=== PATIENT | female | born 1935 | race Caucasian/White ===

== ENCOUNTER 2021-05-01 11:26 | Observation (INO) | payer MEDICARE, SELFPAY ==
--- NOTE | ~2021-05-01 | XR_ITS ---
EXAMINATION: XR chest 1V portable DATE: 05/01/2021 12:03 INDICATION: Sudden weakness of left lower extremity. TECHNIQUE: A single frontal view of the chest was obtained. COMPARISON: None. FINDINGS: There is mild scarring at the lung apices. No pleural effusion or pneumothorax. The heart s ize is normal. There are changes of heart valve replacements. IMPRESSION: 1. Mild scarring at the lung apices. Reviewed, dictated and finalized at location A.
--- NOTE | ~2021-05-01 | US_ITS ---
EXAMINATION: US carotid duplex BI DATE: 05/02/2021 10:45 INDICATION: Transient ischemic episode with sudden onset lower limb weakness with left lower limb pre dominance. TECHNIQUE: Grayscale, color Doppler, and pulsed Doppler images of the cervical carotid arteries were obtained. The degree of vessel stenosis is placed in one of the following categories: normal, <50%, 5 0-69%, >=70% but less than near-occlusion, near-occlusion, or total occlusion. Note that percent sten osis relative to normal distal artery lumen diameter is indirectly measured from velocity measurement s as described by Jimmy, et al. Radiology 2003; 229:340-346. COMPARISON: None. FINDINGS: RIGHT: The right common carotid artery (CCA) peak systolic velocity (PSV) is 79 cm/s. The right internal car otid artery (ICA) PSV is 81 cm/s. The right ICA end-diastolic velocity (EDV) is 16 cm/s. The right IC A/CCA PSV ratio is 1.0. Grayscale and color Doppler images yield an estimate of <50% diameter reducti on from plaque in the ICA. The external carotid artery (ECA) PSV is 103 cm/s. There is antegrade flow in the right vertebral artery. LEFT: The left CCA PSV is 89 cm/s. The left ICA PSV is 98 cm/s. The left ICA EDV is 12 cm/s. The left ICA/C CA PSV ratio is 1.1. Grayscale and color Doppler images yield an estimate of <50% diameter reduction from plaque in the ICA. The ECA PSV is 119 cm/s. There is antegrade flow in the left vertebral artery . IMPRESSION: 1. <50% stenosis in the right internal carotid artery. 2. <50% stenosis in the left internal carotid artery. 3. Cardiac arrhythmia is present. Correlate with EKG. Reviewed, dictated and finalized at location A.
--- NOTE | ~2021-05-01 | MR_ITS ---
EXAMINATION: MR brain/brain stem wo/w con DATE: 05/02/2021 11:13 INDICATION: Transient ischemic attack. Left hemiparesis. TECHNIQUE: Magnetic resonance imaging (MRI) of the brain and brainstem was performed without and with 12 mL MultiHance intravenous contrast. Sequences included sagittal and axial T1-weighted FSE, axial diffusion-weighted FS EPI, axial T2*-weighted GRE, axial T2-weighted FLAIR Propeller, and axial T2-we ighted Propeller. Postcontrast sequences included axial, sagittal, and coronal T1-weighted FSE. Appar ent diffusion coefficient (ADC) maps were created. COMPARISON: Head CT 05/01/2021 FINDINGS: There are scattered areas of nonspecific increased T2-weighted signal intensity in the cere bral white matter. 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 There is no intracran ial hemorrhage, acute infarction, or abnormal intracranial mass lesion. The ventricles are normal in size. There are likely changes of ocular lens replacement surgeries. There is mild mucosal thickening in the ethmoid sinuses. The mastoid air cells are normal. IMPRESSION: 1. Moderate nonspecific cerebral white matter disease, which likely represents chronic small vessel i schemic disease. Reviewed, dictated and finalized at location A. IMPRESSION: 1. Moderate nonspecific cerebral white matter disease, which likely represents chronic small vessel ischemic disease.
--- NOTE | ~2021-05-01 | CT_ITS ---
EXAMINATION: CT brain wo con DATE: 05/01/2021 12:06 INDICATION: Sudden weakness of left lower extremity. TECHNIQUE: Computed tomography (CT) of the head was performed without intravenous contrast. The mA wa s adjusted according to patient size. Iterative reconstruction technique was employed. The dose-lengt h product was 605.33 mGy-cm. COMPARISON: None FINDINGS: There are scattered areas of low attenuation in the cerebral white matter. There is no intr acranial hemorrhage, acute infarction, or abnormal intracranial mass lesion. The ventricles are hernan l in size. There is mild mucosal thickening in the paranasal sinuses. There are likely changes of ocu lar lens replacement surgeries. The mastoid air cells are normal. IMPRESSION: 1. Moderate nonspecific cerebral white matter disease, which likely represents chronic small vessel i schemic disease. Reviewed, dictated and finalized at location A. IMPRESSION: 1. Moderate nonspecific cerebral white matter disease, which likely represents chronic small vessel ischemic disease.
[2021-05-01 11:33] VITALS: BP 135/75; PULSE 89; RESP 14; TEMP 36.6; O2SAT 99
--- NOTE | 2021-05-01 11:51 | ECG_ITS ---
Measurements Intervals [place] Rate: 82 P: MD: 0 QRS: 48 QRSD: 83 T: 18 QT: 367 QTc: 430 Interpretive Statements ATRIAL FIBRILLATION BORDERLINE T WAVE ABNORMALITY- ANT/INF LEADS BASELINE ARTIFACT- I, II, III, AVR, AVL, AVF ABNORMAL ECG Electronically Signed On 05-01-2021 13:00:25 CDT by Naren Bui D.O.
--- NOTE | 2021-05-01 12:17 | ED.GENADULT ---
HPI - General Adult General Chief complaint: Extremity Problem,Nontraumatic Stated complaint: left leg weakness onset 0930 Time Seen by Provider: 05/01/21 11:45 Source: patient, family, EMS and RN notes reviewed Mode of arrival: EMS Limitations: no limitations History of Present Illness HPI narrative: Patient is 85 years old white female brought to the emergency room by ambulance from home complaining of sudden onset of weakness of the left lower extremity. Patient was not able to move it. Patient denies any weakness anywhere else. Also denies any tingling numbness fever chills chest pain or shortness of breath or headache or recent trauma. Patient is fully vaccinated for COVID-19. Related Data Allergies Allergy/AdvReac Type Severity Reaction Status Date / Time No Known Allergies Allergy Verified 05/01/21 12:35 Review of Systems Review of Systems: CONSTITUTIONAL: Denies fever, chills, or sweats. EYES: Denies visual changes, redness, or discharge. ENT: Denies rhinorrhea, congestion, sore throat, or otalgia. CARDIOVASCULAR: Denies chest pain, palpitations, or edema. RESPIRATORY: Denies cough or dyspnea. GASTROINTESTINAL: Denies abdominal pain, nausea, vomiting, or diarrhea. GENITOURINARY: Denies dysuria or hematuria. SKIN: Denies rash or itching. MUSCULOSKELETAL: Denies back pain, joint pain, or myalgia. NEUROLOGIC: Denies headache, numbness, or weakness. PSYCHIATRIC: Denies anxiety or depression. Exam Narrative: General appearance: Well-developed, well-nourished, generally weak Skin: Normal color Head: Normocephalic, nontraumatic Eyes: Clear conjunctiva ENT: Oropharynx normal, ears normal, nose normal Neck: Supple, nontender Chest and respiratory: Airway patent, no respiratory distress, no accessory muscle use Heart: Regular rate/rhythm Abdomen: Soft, nontender, no organomegaly, quiet bowel sounds Vascular: Normal peripheral pulses, normal capillary refill. Musculoskeletal: Normal range of motion, nontender back Neurologic: Alert and oriented ?3, [employer] WORK[employer] is normal as tested, no gross motor deficit Course Course Emergency Course: Stable, resolved Vital Signs Vital signs: Vital Signs Temperature 36.6 C 05/01/21 11:33 Pulse Rate 89 05/01/21 11:33 Respiratory Rate 14 05/01/21 11:33 Blood Pressure 135/75 05/01/21 11:33 Pulse Oximetry 99 05/01/21 11:33 Temperature 36.6 C 05/01/21 11:33 Pulse Rate 89 05/01/21 11:33 Respiratory Rate 14 05/01/21 11:33 Blood Pressure 135/75 05/01/21 11:33 Pulse Oximetry 99 05/01/21 11:33 Medical Decision Making MDM Narrative Medical decision making narrative: Sudden onset of weakness of the left lower extremity. CT head, labs, chest x-ray ordered. Differential diagnosis as below. Differential Diagnosis Differential Diagnosis: Ischemic limb, CVA, electrolyte imbalance. Vital Signs Vital Signs: Vital Signs Temperature 36.6 C 05/01/21 11:33 Pulse Rate 89 05/01/21 11:33 Respiratory Rate 14 05/01/21 11:33 Blood Pressure 135/75 05/01/21 11:33 Pulse Oximetry 99 05/01/21 11:33 Temperature 36.6 C 05/01/21 11:33 Pulse Rate 89 05/01/21 11:33 Respiratory Rate 14 05/01/21 11:33 Blood Pressure 135/75 05/01/21 11:33 Pulse Oximetry 99 05/01/21 11:33 Imaging Data Radiologist's impression: Impressions Chest X-Ray 05/01/21 12:03 IMPRESSION: 1. Mild scarring at the lung apices. Head CT 05/01/21 12:07 IMPRESSION: 1. Moderate nonspecific cerebral white matter disease, which likely represents chronic small vessel ischemic disease. ECG Data EKG #1: Attestation: I personally reviewed and interpreted this ECG as follow
[2021-05-01 12:18] LABS: Glucose Point of Care 102 mg/dl (65-105)
[2021-05-01] MEDS: ASPIRIN 325 MG TABLET PO (12:35)
[2021-05-01 13:27] VITALS: BP 116/55; PULSE 83; RESP 19; O2SAT 96
[2021-05-01 13:29] LABS: Basophils Absolute Auto 0.1 K/mm3 (0.0-0.1); Basophils Percent Auto 0.4 % (0.2-1.2); Eosinophils Absolute Auto 0.2 K/mm3 (0-0.3); Eosinophils Percent Auto 1.2 % (0-4.4); Hematocrit 33.7 % (37.0-47.0); Hemoglobin 11.5 g/dL (12.0-15.0); Immature Granulocyte Absolute 0.09 K/mm3 (0.00-0.031); Immature Granulocyte Percent A 0.6 % (0-0.5); Lymphocytes Percent Auto 9.6 % (18.3-44.2); Mean Corpuscular HGB Conc 34.1 g/dl (32-36); Mean Corpuscular Hemoglobin 35.3 pg (26-34); Mean Corpuscular Volume 103.4 fl (80-100); Mean Platelet Volume 9.7 fl (7.4-10.4); Monocytes Absolute Auto 0.7 K/mm3 (0.1-0.6); Monocytes Percent Auto 4.2 % (2.6-8.5); Neutrophils Absolute Auto 13.1 K/mm3 (1.3-6.7); Platelet Count Result 379 k/mm3 (150-375); Red Blood Count 3.26 M/mm3 (4.2-5.4); Red Cell Distribution Width 15.5 % (11.5-14.5); White Blood Count 15.6 K/mm3 (4.5-10.0)
[2021-05-01 13:42] LABS: Partial Thromboplastin Time 27.5 SECONDS (22.3-36.8); Prothrombin Time 13.1 Seconds (11.1-14.7)
[2021-05-01 13:43] LABS: Alanine Aminotransferase 13 U/L (4-35); Albumin Level 4.6 g/dL (3.5-5.1); Alkaline Phosphatase 157 U/L (38-126); Anion Gap 8 mmol/L (8-16); Aspartate Amino Transferase 30 U/L (14-36); Bilirubin,Total 0.5 mg/dL (0.2-1.3); Blood Urea Nitrogen 20 mg/dL (7-17); CRP 1.6 mg/dL (<1.0); Calcium 9.9 mg/dL (8.4-10.2); Carbon Dioxide 26 mmol/L (22-30); Chloride 105 mmol/L (98-107); Estimated CRCL calculation 37 ml/min; Estimated Glomerular Filt Rate 59; Glucose 91 mg/dL (65-110); Potassium 4.2 mmol/L (3.4-5.0); Sodium 139 mmol/L (137-145)
[2021-05-01 13:51] LABS: Troponin I < 0.012 ng/mL (0.000-0.034)
[2021-05-01 14:04] LABS: Erythrocyte Sedimentation Rate 122 mm/hr (0-20)
[2021-05-01 14:59] LABS: Add Urine Microscopic? YES; Appearance Urine Cloudy (Clear); Bilirubin Urine Negative (Negative); Blood Urine Negative (Negative); Color Urine Yellow (Yellow); Glucose Urine UA Negative (Negative); Ketones Urine Negative (Negative); Leukocyte Esterase Ur 1+ LEU/UL (Negative); Mucus Urine Rare /lpf; Nitrate Urine Negative (Negative); Protein Urine Negative (Negative); RBC Urine 0-2 /hpf (0-2); Specific Grav Ur 1.009 (1.001-1.035); Squamous Epithelial Cell Urine Few /hpf (Few); Urobilinogen Urine Negative mg/dL (<2.0)
--- NOTE | 2021-05-01 16:00 | PM.IMHP ---
H&P: HPI History of Present Illness Date/Time: 05/01/21 16:00 Chief Complaint: Left leg weakness. Narrative: This is an 85-year-old female with dementia, hypertension, hypothyroidism, GERD, and rheumatoid arthritis who presented to the emergency department earlier today from home for evaluation of left leg weakness. Due to the patient's dementia she is not the best historian and thus some of the following is obtained via review of her electronic medical records as well as discussions with her son John at bedside, with the patient's permission. This morning the patient ambulated to the dining room for breakfast and when she went to stand up to fetch more coffee her leg just stopped working. Staff at her senior care facility then called her son who came to check up on her and he reports that it took 3 people to get her into a wheelchair as she was unable to move her left leg. Son also reports that her right leg seemed a bit weak for a period of time as well. She has no deficits at the time of my evaluation and her symptoms resolved within a few hours. He does not recall if she is ever had similar symptoms in the past. It should be noted that the patient recently fractured a bone in her left foot which apparently did not heal well and her son is wondering if perhaps there may be some relation. The patient herself denies pain in the foot and leg. She also denies current focal weakness and paresthesias. Review of Systems Review of Systems: 12 systems were reviewed. Somewhat limited given her dementia. No mention of fever, chills, or sweats. No recent illness. The patient denies chest pain shortness of breath. No nausea, vomiting, diarrhea, or dysuria. No vertigo or diplopia. No dysphagia or dysarthria. Except as documented, all other systems were reviewed and are negative. [facility] Past Medical History Medical History (Updated 05/01/21 @ 20:51 by Patience Montenegro PA-C) Chronic anemia Patient on iron supplementation. She also receives Epogen injection per her primary care provider. Dementia Gastroesophageal reflux disease Hyperlipidemia Hypertension Hypothyroidism Rheumatoid arthritis Surgical History Surgical History (Updated 05/01/21 @ 20:40 by Patience Montenegro PA-C) History of section History of cholecystectomy History of mitral valve replacement Family History Family History (Updated 05/01/21 @ 20:40 by Patience Montenegro PA-C) Other Dementia Diabetes mellitus Social History Social History (Updated 05/01/21 @ 20:42 by Patience Montenegro PA-C) Social History: Surrogate decision-maker: John Cabello, son. CODE STATUS: Full code. Smoking status: Never smoker Alcohol intake: never Substance use: never Additional living arrangements comments: The patient lives in a senior care community in [place]. Additional occupation/education comments: Retired from working in a [employer] yard. Meds Home Medications and Allergies Home Medications Medication Instructions Recorded Confirmed Type aspirin [Aspirin Low Dose] 81 mg PO DAILY 05/01/21 05/01/21 History carvedilol 3.125 mg PO BID 05/01/21 05/01/21 History cyanocobalamin (vitamin B-12) 250 mcg PO DAILY 05/01/21 05/01/21 History ferrous sulfate 325 mg PO DAILY 05/01/21 05/01/21 History gemfibrozil 600 mg PO BID 05/01/21 05/01/21 History levothyroxine 50 mcg PO DAILY 05/01/21 05/01/21 History methotrexate sodium 5 mg PO WEEKLY 05/01/21 05/01/21 History mirtazapine 30 mg PO DAILY 05/01/21 05/01/21 History mv, min #36-iron,carbonyl-FA 1 tablet PO DAILY 05/01/21 05/01/21 History [Geritol Complete] omeprazole 20 mg PO DAILY 05/01/21 05/01/21 History spironolactone 12.5 mg PO DAILY 05/01/21 05/01/21 History Allergies Allergy/AdvReac Type Severity Reaction Status Date / Time No Known Allergies Allergy Verified 05/01/21 12:35 Vital Signs Vital Signs - 24 hr 05/01/21 11:33 05/01/21 13:27 Temperature 97.8 F Pulse
[2021-05-01 17:56] VITALS: BP 141/82; PULSE 77; RESP 16; TEMP 36.6; O2SAT 98
[2021-05-01 20:00] VITALS: PULSE 90; PULSE 92; RESP 16; O2SAT 97
[2021-05-01 20:44] VITALS: PULSE 77; RESP 18; O2SAT 98
[2021-05-01 21:37] LABS: Glucose Point of Care 188 mg/dl (65-105)
[2021-05-01 22:00] VITALS: BP 121/57; PULSE 92; RESP 16; TEMP 36.3; O2SAT 97
[2021-05-01 22:00] LABS: Immature Reticulocyte Fraction 17.2 % (3.0-15.9); Reticulocyte Percent 1.23 % (0.7-4.3); Reticulocytes Absolute 0.04 B/L (32.2-175.7)
[2021-05-01 22:22] LABS: Transferrin 185 mg/dL (206-381)
[2021-05-01 22:32] LABS: Iron 33 ug/dL (37-170)
[2021-05-01 23:04] LABS: Percent Iron Saturation 12 % (20-50)
[2021-05-01 23:22] LABS: Folic Acid 11.6 ng/mL (2.76->20)
[2021-05-02] VITALS (8 sets, daily range): BP systolic 112–129; BP diastolic 57–64; PULSE 85–110; RESP 16–18; TEMP 36.4–36.6; O2SAT 90–96
[2021-05-02] MEDS: LEVOTHYROXINE SODIUM 50 MCG TABLET PO (05:35)
[2021-05-02 06:57] LABS: Hematocrit 31.3 % (37.0-47.0); Hemoglobin 10.3 g/dL (12.0-15.0); Mean Corpuscular HGB Conc 32.9 g/dl (32-36); Mean Corpuscular Hemoglobin 33.3 pg (26-34); Mean Corpuscular Volume 101.3 fl (80-100); Mean Platelet Volume 9.6 fl (7.4-10.4); Platelet Count Result 351 k/mm3 (150-375); Red Blood Count 3.09 M/mm3 (4.2-5.4); Red Cell Distribution Width 15.4 % (11.5-14.5)
[2021-05-02 07:02] LABS: Alanine Aminotransferase 12 U/L (4-35); Albumin Level 4.3 g/dL (3.5-5.1); Alkaline Phosphatase 138 U/L (38-126); Anion Gap 7 mmol/L (8-16); Aspartate Amino Transferase 28 U/L (14-36); Bilirubin,Total 0.5 mg/dL (0.2-1.3); Blood Urea Nitrogen 19 mg/dL (7-17); Calcium 9.5 mg/dL (8.4-10.2); Carbon Dioxide 28 mmol/L (22-30); Chloride 105 mmol/L (98-107); Estimated CRCL calculation 41 ml/min; Estimated Glomerular Filt Rate > 60; Glucose 115 mg/dL (65-110); Magnesium 1.8 mg/dL (1.6-2.3); Potassium 3.9 mmol/L (3.4-5.0); Sodium 140 mmol/L (137-145)
[2021-05-02] MEDS: MULTIVITAMINS /C LUTEIN (CENTRUM SILVER) TABLET *BKC 1 TAB PO (09:13)
[2021-05-02] MEDS: SPIRONOLACTONE 12.5 MG TABLET PO (09:13)
[2021-05-02] MEDS: carvediloL 3.125 MG TABLET PO ×2 (09:13→17:13)
[2021-05-02] MEDS: gemfibroziL 600 MG TABLET PO ×2 (09:13→17:13)
[2021-05-02] MEDS: ASPIRIN 81 MG ENTERIC TABLET PO (09:13)
[2021-05-02] MEDS: FERROUS SULFATE 324 MG TABLET PO (09:14)
[2021-05-02] MEDS: CYANOCOBALAMIN 250 MCG TABLET PO (09:14)
[2021-05-02] MEDS: PANTOPRAZOLE 40 MG TABLET PO (09:14)
--- NOTE | 2021-05-02 10:20 | PC.NURSE ---
to MRI at 1020
--- NOTE | 2021-05-02 11:24 | PC.NURSE ---
patient returned to room from MRI
--- NOTE | 2021-05-02 11:52 | WPDNEURCNPN ---
Assessment and Plan Additional Plan considering the presentation she will be thoroughly evaluated rule out the possibility of the his stroke she will have an MRI of the brain in addition to routine blood studies because of ongoing dementia and also evaluation by the physical therapy further adjustment will be made accordingly Consult date: 05/02/21 Time Seen: 10:30 HPI: Yoselyn Cabello is a 85 year old female admitted to the hospital through the emergency room where she was brought by the ambulance from home complaining of sudden onset of weakness of the left lower extremity to the point that she was unable to move 8 with no history of any sensory symptomatology or any generalized symptomatology in addition to no history of trauma initial evaluation in the emergency room revealed her to have no focal neurological deficit with stable vital signs and routine lab studies documented leukocytosis with hemoglobin 10.3 platelet count of 351 INR of 1.0 and BMP normal with blood sugar 115, UA with 10 to 15 WBCs, x-ray chest with mild scarring CT head with nonspecific white matter disease, and MRI of the brain confirming the same nonspecific white matter disease carotid study with less than 50% stenosis but the observation of cardiac arrhythmia. Patient does have ongoing history of 1. Dementia 2. Hypertension 3. Hypothyroidism 4. GERD 5. Rheumatoid arthritis Review of Systems Review of Systems: All systems reviewed & are unremarkable except as noted in HPI and below PMFSH Past Medical History Medical History Chronic anemia Patient on iron supplementation. She also receives Epogen injection per her primary care provider. Dementia Gastroesophageal reflux disease Hyperlipidemia Hypertension Hypothyroidism Rheumatoid arthritis Surgical History Surgical History History of section History of cholecystectomy History of mitral valve replacement Family History Family History Other Dementia Diabetes mellitus Social History Social History Social History: Surrogate decision-maker: John Cabello, son. CODE STATUS: Full code. Smoking status: Never smoker Alcohol intake: never Substance use: never Additional living arrangements comments: The patient lives in a nursing home community in [place]. Additional occupation/education comments: Retired from working in a lumber yard. Meds Home Medications and Allergies Home Medications Medication Instructions Recorded Confirmed Type aspirin [Aspirin Low Dose] 81 mg PO DAILY 05/01/21 05/01/21 History carvedilol 3.125 mg PO BID 05/01/21 05/01/21 History cyanocobalamin (vitamin B-12) 250 mcg PO DAILY 05/01/21 05/01/21 History ferrous sulfate 325 mg PO DAILY 05/01/21 05/01/21 History gemfibrozil 600 mg PO BID 05/01/21 05/01/21 History levothyroxine 50 mcg PO DAILY 05/01/21 05/01/21 History methotrexate sodium 5 mg PO WEEKLY 05/01/21 05/01/21 History mirtazapine 30 mg PO DAILY 05/01/21 05/01/21 History mv, min #36-iron,carbonyl-FA 1 tablet PO DAILY 05/01/21 05/01/21 History [Geritol Complete] omeprazole 20 mg PO DAILY 05/01/21 05/01/21 History spironolactone 12.5 mg PO DAILY 05/01/21 05/01/21 History Allergies Allergy/AdvReac Type Severity Reaction Status Date / Time No Known Allergies Allergy Verified 05/01/21 12:35 Vital Signs Vital Signs - 24 hr 05/01/21 13:27 05/01/21 17:56 05/01/21 20:00 Temperature 36.6 C Pulse Rate 83 77 92 Respiratory Rate 19 16 16 Blood Pressure 116/55 L 141/82 H Pulse Oximetry 96 98 97 05/01/21 20:44 05/01/21 22:00 05/02/21 00:00 Temperature 36.3 C L Pulse Rate 77 92 85 Respiratory Rate 18 16 Blood Pressure 121/57 L Pulse Oximetry 98 97 05/02/21 04:00 05/02/21 06:00 05/02/21 08:00 Temperature 36.4 C L
--- NOTE | 2021-05-02 15:12 | PM.IMPN ---
Progress Note: A&P Assessment and Plan (1) Transient left leg weakness: Code(s): R29.898 - Other symptoms and signs involving the musculoskeletal system Status: Acute (2) Macrocytic anemia: Code(s): D53.9 - Nutritional anemia, unspecified Status: Acute (3) Dementia: Code(s): F03.90 - Unspecified dementia without behavioral disturbance Status: Acute (4) Rheumatoid arthritis: Code(s): M06.9 - Rheumatoid arthritis, unspecified Status: Acute (5) Elevated erythrocyte sedimentation rate: Code(s): R70.0 - Elevated erythrocyte sedimentation rate Status: Acute (6) Hypothyroidism: Code(s): E03.9 - Hypothyroidism, unspecified Status: Acute (7) Hypertension: Code(s): I10 - Essential (primary) hypertension Status: Acute (8) Hyperlipidemia: Code(s): E78.5 - Hyperlipidemia, unspecified Status: Acute Additional Plan The patient was brought to the hospital today for evaluation of left leg weakness however her son reports that her right leg also seemed weak. Pt is here for stroke work up, pt can have pT / OT. MRI CT and carotids scans reviewed, [facility] dc tyrone Subjective Date/time seen: 05/02/21 15:12 Interval history: 85-year-old female with dementia, hypertension, hypothyroidism, GERD, and rheumatoid arthritis who presented to the emergency department earlier today from home for evaluation of left leg weakness. Pt is having stroke work up for possible TIA/ STroke, seen by neurology. Review of Systems Review of Systems: All systems reviewed & are unremarkable except as noted in HPI and below Exam Narrative: General: Frail elderly female. Respiratory: Lungs are clear to auscultation bilaterally. Cardiovascular: Regular rate and rhythm with S1-S2. Soft murmur at the apex Gastrointestinal: Abdomen is soft, nontender, and nondistended with positive bowel sounds. Skin: Warm and dry. Generalized pallor. Extremities: No cyanosis, clubbing, or edema. Radial and pedal pulses intact. Neurological: Alert and oriented to name, age, and date of . Feels heaviness in her left leg Psychiatric: Pleasantly confused. Objective Data Vital Signs Vital Signs: Vital Signs - 24 hr 05/01/21 17:56 05/01/21 20:00 05/01/21 20:44 Temperature 36.6 C Pulse Rate 77 92 77 Respiratory Rate 16 16 18 Blood Pressure 141/82 H Pulse Oximetry 98 97 98 05/01/21 22:00 05/02/21 00:00 05/02/21 04:00 Temperature 36.3 C L Pulse Rate 92 85 96 Respiratory Rate 16 Blood Pressure 121/57 L Pulse Oximetry 97 05/02/21 06:00 05/02/21 08:00 05/02/21 09:13 Temperature 36.4 C L Pulse Rate 104 H 110 H 110 H Respiratory Rate 16 Blood Pressure 129/64 Pulse Oximetry 90 05/02/21 14:00 Temperature 36.6 C Pulse Rate 86 Respiratory Rate 18 Blood Pressure 112/57 L Pulse Oximetry 96 Intake/Output Intake/Output: Intake & Output 04/29/21 04/30/21 05/01/21 05/02/21 23:59 23:59 23:59 23:59 Intake Total 580 Output Total 325 Balance 255 Meds/Results Medications: Active Medications Generic Name Dose Route Start Last Admin Trade Name Freq PRN Reason Stop Dose Admin Aspirin 81 mg 05/02/21 09:00 05/02/21 09:13 Aspirin 81 Mg Enteric Tablet PO 81 mg DAILY [facility] Administration Carvedilol 3.125 mg 05/02/21 09:00 05/02/21 09:13 Carvedilol 3.125 Mg Tablet PO 3.125 mg BID [facility] Administration Cyanocobalamin 250 mcg 05/02/21 09:00 05/02/21 09:14 Cyanocobalamin 250 Mcg Tablet PO 250 mcg DAILY JOSE E Administration Ferrous Sulfate 324 mg 05/02/21 09:00 05/02/21 09:14 Ferrous Sulfate 324 Mg Tablet PO 324 mg DAILY JOSE E Administration Gemfibrozil 600 mg 05/02/21 09:00 05/02/21 09:13 Gemfibrozil 600 Mg Tablet PO 600 mg BID [facility] Administration Levothyroxine Sodium 50 mcg 05/02/21 06:30 05/02/21 05:35 Levothyroxine Sodium 50 Mcg Tablet PO 50 mcg DAILY@0630 [facility] Ad
[2021-05-02] MEDS: MIRTAZAPINE 30 MG TABLET PO (17:13)
--- NOTE | 2021-05-02 18:34 | PM.DS ---
DS: Admitting Diagnosis Discharge Date 05/02/2021 Admitting Diagnosis Left leg weakness DS: Discharge Diagnosis Discharge Diagnosis (1) Transient left leg weakness: Code(s): R29.898 - Other symptoms and signs involving the musculoskeletal system Status: Acute Assessment and Plan: The patient was brought to the hospital today for evaluation of left leg weakness however her son reports that her right leg also seemed weak. Pt is here for stroke work up, pt can have pT / OT. MRI CT and carotids scans reviewed nil acute. (2) Macrocytic anemia: Code(s): D53.9 - Nutritional anemia, unspecified Status: Acute Assessment and Plan: PCP To FOLLOW (3) Dementia: Code(s): F03.90 - Unspecified dementia without behavioral disturbance Status: Acute Assessment and Plan: PCP To FOLLOW (4) Rheumatoid arthritis: Code(s): M06.9 - Rheumatoid arthritis, unspecified Status: Acute Assessment and Plan: PCP To FOLLOW (5) Elevated erythrocyte sedimentation rate: Code(s): R70.0 - Elevated erythrocyte sedimentation rate Status: Acute Assessment and Plan: ESR high ? PMR pt has history of RA i [place] dc with oral course of steroids. (6) Hypothyroidism: Code(s): E03.9 - Hypothyroidism, unspecified Status: Acute Assessment and Plan: PCP To FOLLOW , tsh is NL here (7) Hypertension: Code(s): I10 - Essential (primary) hypertension Status: Acute Assessment and Plan: PCP To FOLLOW (8) Hyperlipidemia: Code(s): E78.5 - Hyperlipidemia, unspecified Status: Acute Assessment and Plan: PCP To FOLLOW DS: Summary Hospital Course Hospital Course: 85-year-old female with dementia, hypertension, hypothyroidism, GERD, and rheumatoid arthritis who presented to the emergency department earlier today from home for evaluation of left leg weakness. Pt is having stroke work up for possible TIA/ STroke, seen by neurology.Work up was negative. Pt dc with short course of oral steroids. Time Spent with Patient Time attestation: Total time spent providing and/or coordinating discharge services:33 minutes on day of discharge. Exam Narrative: General: Frail elderly female. Respiratory: Lungs are clear to auscultation bilaterally. Cardiovascular: Regular rate and rhythm with S1-S2. Soft murmur at the apex Gastrointestinal: Abdomen is soft, nontender, and nondistended with positive bowel sounds. Skin: Warm and dry. Generalized pallor. Extremities: No cyanosis, clubbing, or edema. Radial and pedal pulses intact. Neurological: Alert and oriented to name, age, and date of . Feels heaviness in her left leg Psychiatric: Pleasantly confused. DS: Data Data Completed and Pending Labs on day of discharge: Labs from last 24 hours 05/02/21 05/02/21 05/02/21 06:01 06:01 06:00 WBC 14.0 H RBC 3.09 L Hgb 10.3 L Hct 31.3 L MCV 101.3 H MCH 33.3 D MCHC 32.9 RDW 15.4 H Plt Count 351 MPV 9.6 Absolute Retic Percent Retic Immature Retic Fraction Retic Hgb Content Sodium 140 Potassium 3.9 Chloride 105 Carbon Dioxide 28 Anion Gap 7 L BUN 19 H Creatinine 0.80 Estim Creat Clear Calc 41 Estimated GFR > 60 Glucose 115 H POC Capillary Glucose Calcium 9.5 Magnesium 1.8 Iron TIBC % Saturation Transferrin Ferritin Total Bilirubin 0.5 AST 28 ALT 12 Alkaline Phosphatase 138 H Total Protein 8.0 Albumin 4.3 Vitamin B12 Folate TSH (Reflex) 1.310 05/01/21 05/01/21 05/01/21 21:39 21:39 21:39 WBC RBC Hgb Hct MCV MCH MCHC RDW Plt Count MPV Absolute Retic 0.04 L Percent Retic 1.23 Immature Retic Fraction 17.2 H Retic Hgb Content 40.0 H Sodium Potassium Chloride Carbon Dioxide Anion Gap BUN Creatinine Estim C
--- NOTE | 2021-05-02 20:58 | ECHO_ITS ---
Patient Info Name: Yoselyn Cabello Age: 85 years : 1935 Gender: Female Ht: 66 in Wt: 136 lbs BSA: 1.70 m2 HR: 82 bpm BP: 129 / 64 mmHg Heart Rhythm: Atrial Fibrillation Exam Date: 05/02/2021 1:22 PM Exam Location: [facility] Pulmonary Patient Status: Outpatient Admit Date: 05/01/2021 Staff Ordering Physician: Patience Montenegro PA-C Tooling Supervisor: Nimesh Browne RDCS, RT Attending Provider: Fox Apple MD Referring Physician: Moni FREITAS; Exam Type: CA echo doppler color flow Study Info Indications I10 - Essential (primary) hypertension Complete two-dimensional, color flow and Doppler transthoracic echocardiogram is performed. Strain analysis performed. Summary 1. Complete two-dimensional, color flow and Doppler transthoracic echocardiogram is performed. 2. Normal left ventricular size with mild concentric hypertrophy. Left ventricular function is mildly diminished, calculated EF 49%, visually 50%, with no segmental wall motion abnormalities. Average global longitudinal strain is moderately decreased at -11%. This is consistent with systolic dysfunction as well. Grade 2 diastolic dysfunction is present. 3. Probable right ventricular dysfunction. 4. Left atrial chamber dimension is mildly enlarged. 5. No pulmonary hypertension, estimated pulmonary arterial systolic pressure is 29 mmHg. 6. There is mild pulmonic regurgitation. 7. Atrial fibrillation. Left Ventricle Left ventricular chamber dimension is normal. Left ventricular systolic function is normal, estimated at 45-50%. There is mildly increased left ventricular wall thickness. Left ventricular septal wall motion is normal. The left ventricular diastolic function is grade II diastolic dysfunction. Global longitudinal strain is moderately elevated at 11 %. Right Ventricle Right ventricular chamber dimension is normal. Right ventricular systolic function is abnormal; the RV S' is low at 0.07. Linear artifact in right ventricle suggestive of catheter(s), pacemaker lead(s), or ICD lead(s). Left Atria Left atrial chamber dimension is mildly enlarged. Right Atria Right atrial chamber dimension is normal. Aortic Valve The aortic valve is trileaflet. There is mild aortic valve sclerosis. There is no aortic valve stenosis. There is no aortic valve regurgitation. Pulmonic Valve The pulmonic valve is normal. There is no pulmonic valve stenosis. There is mild pulmonic regurgitation. Mitral Valve The mitral valve has thickened leaflets. There is no mitral valve stenosis. There is no mitral valve regurgitation. Tricuspid Valve The tricuspid valve leaflets are normal. There is no significant tricuspid valve stenosis. There is trace tricuspid valve regurgitation. No pulmonary hypertension, estimated pulmonary arterial systolic pressure is 29 mmHg. Pericardium/Pleural The pericardium appears normal. There is no pericardial effusion. Inferior Vena Cava Normal inferior vena cava with >50% collapse upon inspiration consistent with Empty right atrial pressure, 10 mmHg. Aorta The aortic root size at the sinus of Valsalva is normal. The prox ascending aorta size is normal. There is mild aortic atherosclerosis. Left Ventricular Outflow Tract Name Value Normal LVOT 2D
== END 2021-05-02 19:02 | disposition home or self-care (01) ==
LOC: ANHED 12:20 → ANH3MEDSUR 05-02 13:02
PROVIDERS: Physician Assistant; Admitting Provider Internal Medicine; Emergency Provider Emergency Medicine; PCP Family Medicine; Visit Provider Family Medicine
DX: G81.94 Hemiplegia, unspecified affecting left nondominant side (principal); D64.9 Anemia, unspecified; E03.9 Hypothyroidism, unspecified; E78.5 Hyperlipidemia, unspecified; F03.90 Unspecified dementia, unspecified severity, without behavioral disturbance, psychotic disturbance, mood disturbance, and anxiety; I10 Essential (primary) hypertension; M06.9 Rheumatoid arthritis, unspecified; R70.0 Elevated erythrocyte sedimentation rate; G45.9 Transient cerebral ischemic attack, unspecified; Z79.899 Other long term (current) drug therapy
CPT/HCPCS: 36415; 70450; 70553; 71045; 80053; 81001; 82607; 82728; 82746; 82948; 83540; 83550; 83735; 84443; 84466; 84484; 85025; 85027; 85046; 85610; 85652; 85730; 86140; 87077; 87086; 87088; 93005; 93306; 93880; 97161; 97165; 99285; A9270; A9577; G0378

== ENCOUNTER 2021-11-11 11:01 | Observation (INO) | payer MEDICARE, SELFPAY ==
[2021-11-11] VITALS (8 sets, daily range): BP systolic 125–160; BP diastolic 64–71; PULSE 78–99; RESP 13–18; TEMP 36.1–36.8; O2SAT 98–100; BMI 21.5
--- NOTE | ~2021-11-11 | XR_ITS ---
EXAMINATION: XR barium swallow modified DATE: 11/12/2021 10:41 INDICATION: Dysphagia. TECHNIQUE: The patient was given barium-containing material of multiple consistencies to swallow by андрей evans speech pathologist while I performed fluoroscopy. Dose-area product was [id number] Gy-cm2. FINDINGS: Oral Stage: Within functional limits Pharyngeal Phase: Reduced laryngeal elevation Significant vallecular and trace piriform sinus and pharyngeal wall residue. There is laryngeal penetration and minimal tracheal aspiration with mixed consistency only. Aspiratio n is silent. Cervical/Esophageal Stage: Within functional limits IMPRESSION: Modified esophagram findings as above. Please refer to the speech therapy report for [facility] recommendations. Reviewed, dictated and finalized at [facility]. Reviewed, dictated and finalized at location [facility]. IMPRESSION: Modified esophagram findings as above. Please refer to the speech t herapy report for specific recommendations.
--- NOTE | ~2021-11-11 | MR_ITS ---
EXAMINATION: MR brain/brain stem wo/w con DATE: 11/12/2021 10:03 INDICATION: TIA TECHNIQUE: Magnetic resonance imaging (MRI) of the brain and brainstem was performed without and with 12 mL MultiHance intravenous contrast. Sequences included sagittal and axial T1-weighted SE, axial d iffusion-weighted FS EPI ASSET, axial T2*-weighted GRE, axial T2-weighted FLAIR Propeller, and axial T2-weighted Propeller. Postcontrast axial and coronal T1-weighted SE was obtained. Apparent diffusion coefficient (ADC) maps were created. COMPARISON: CT brain 11/11/2021. FINDINGS: No abnormal restricted diffusion to suggest acute ischemic infarct. No MRI evidence of hemorrhage or extra-axial collection. Small foci of susceptibility, nonspecific but most likely reflective of prior microhemorrhages . Moderate chronic white matter change. Mild generalized parenchymal volume loss. V entricles are proportional to brain volume. Basilar cisterns are patent. Partially empty sella. Flow voids are preserved. Small right cerebellar vascular malformation. No surrounding hemorrhage. Mucosal thickening in the ethmoid air cells. IMPRESSION: 1. No acute intracranial abnormality. Specifically there is no MR evidence of acute ischemic infarct. Reviewed, dictated and finalized at location [facility]. IMPRESSION: 1. No acute intracranial abnormality. Specifically there is no MR evidence of a cute ischemic infarct.
--- NOTE | ~2021-11-11 | CT_ITS ---
EXAMINATION: CT brain wo con DATE: 11/11/2021 12:13 INDICATION: Speech difficulty. Difficulty swallowing. TECHNIQUE: Computed tomography (CT) of the head was performed without intravenous contrast. The mA wa s adjusted according to patient size. Iterative reconstruction technique was employed. Exam dose: 52 9.67 mGy-cm total exam DLP. COMPARISON: 05/01/2021 MRI brain/brainstem 05/01/2021 CT brain FINDINGS: There is central and cortical cerebral atrophy and cerebellar atrophy. Prominent bilateral carotid siphon internal carotid artery calcification. Bilateral vertebral artery calcification. There is nonspecific diminished attenuation of the cerebral white matter, likely due to chronic small vessel ischemic change. No intracranial mass lesion or hemorrhage or cerebral or cerebellar infarct is noted. No subdural or epidural hematoma. There is an opacified ethmoid air cell and limited ethmoid soft tissue thickening at the included par anasal sinuses and the mastoid air cells otherwise are normally developed and aerated. No fracture or bone destruction of the cranial vault. IMPRESSION: Cerebral and cerebellar atrophy Cerebral atherosclerosis and chronic small vessel ischemic changes of the cerebral white matter No acute intracranial finding Reviewed, dictated and finalized at [facility]. Reviewed, dictated and finalized at location [facility]. IMPRESSION: Cerebral and cerebellar atrophy Cerebral atherosclerosis and chronic small vessel ischemic changes of the cereb ral white matter No acute intracranial finding
--- NOTE | 2021-11-11 11:47 | ED.GENADULT ---
HPI - General Adult General Chief complaint: Unspecified Stated complaint: choking episode Source: patient, family, EMS and RN notes reviewed Mode of arrival: EMS Limitations: dementia History of Present Illness HPI narrative: 85-year-old female history of dementia and TIAs presented to the emergency department for evaluation after having a choking episode and transient change in mental status. Family states that yesterday the patient had a significant choking episode during which she has had loss of consciousness. Patient was evaluated at an outside hospital and did have upper endoscopy that showed a food bolus. This was removed during the endoscopy. Patient also had a chest CT which showed no acute abnormalities. Family states that patient does have a history of TIA and after the choking episode patient had a change in her awareness and was not speaking for approximately 30 minutes. Patient did return back to her baseline. snf called the family today stating that she had once again choked on a pill. When family arrived to the [place] they stated the patient was in no respiratory distress but was once again less responsive and nonverbal although she was conscious. Family states that the patient has no prior seizure history and reported no seizure-like activity today. The suspected duration of the decreased verbal response was approximately 30 minutes today. Upon arrival to the emergency department family states that the patient is much closer to her baseline. Patient is quiet but she is able to answer all questions. Only complaint is soreness to her tongue. Related Data Home Medications Medication Instructions Recorded Confirmed Geritol Complete 1 tablet PO DAILY 05/01/21 11/11/21 aspirin [Aspirin Low Dose] 81 mg PO DAILY 05/01/21 11/11/21 carvedilol 3.125 mg PO BID 05/01/21 11/11/21 cyanocobalamin (vitamin B-12) 250 mcg PO DAILY 05/01/21 11/11/21 ferrous sulfate 325 mg PO DAILY 05/01/21 11/11/21 gemfibrozil 600 mg PO BID 05/01/21 11/11/21 levothyroxine 50 mcg PO DAILY 05/01/21 11/11/21 methotrexate sodium 5 mg PO WEEKLY 05/01/21 11/11/21 mirtazapine 30 mg PO DAILY 05/01/21 11/11/21 omeprazole 20 mg PO DAILY 05/01/21 11/11/21 spironolactone 12.5 mg PO DAILY 05/01/21 11/11/21 docusate sodium [Dulcolax Stool 1 mg PO DAILY 11/11/21 11/11/21 Softener (dss)] Allergies Allergy/AdvReac Type Severity Reaction Status Date / Time No Known Allergies Allergy Verified 11/11/21 11:47 Review of Systems Review of Systems: CONSTITUTIONAL: Denies fever, chills, or sweats. EYES: Denies visual changes, redness, or discharge. ENT: Denies rhinorrhea, congestion, sore throat, or otalgia. CARDIOVASCULAR: Denies chest pain, palpitations, or edema. RESPIRATORY: Denies cough or dyspnea. GASTROINTESTINAL: Denies abdominal pain, nausea, vomiting, or diarrhea. GENITOURINARY: Denies dysuria or hematuria. SKIN: Denies rash or itching. MUSCULOSKELETAL: Denies back pain, joint pain, or myalgia. NEUROLOGIC: See [facility] Past Medical History Medical History (Updated 11/11/21 @ 15:14 by Patience Montenegro PA-C) Atrial fibrillation Chronic anemia Patient on iron supplementation. She also receives Epogen injection per her primary care provider. Combined congestive systolic and diastolic heart failure Echo in April 2021 showed mild concentric LVH, mildly diminished LV function with a calculated EF of 49%, grade 2 diastolic dysfunction, and probable right ventricular dysfunction. PASP was 29 mmHg. Dementia Gastroesophageal reflux disease Hyperlipidemia Hypertension Hypothyroidism Rheumatoid arthritis Surgical History Surgical History History of section History of cholecystectomy History of mitral valve replacement Family History Family History Other Dementia Diabetes mellitus Social History Social Hi
[2021-11-11 12:28] LABS: Alanine Aminotransferase 22 U/L (4-35); Albumin Level 4.5 g/dL (3.5-5.1); Alkaline Phosphatase 143 U/L (38-126); Anion Gap 10 mmol/L (8-16); Aspartate Amino Transferase 43 U/L (14-36); Basophils Percent Auto 0.6 % (0.2-1.2); Bilirubin,Total 0.8 mg/dL (0.2-1.3); Blood Urea Nitrogen 32 mg/dL (7-17); Calcium 9.5 mg/dL (8.4-10.2); Carbon Dioxide 25 mmol/L (22-30); Chloride 103 mmol/L (98-107); Eosinophils Absolute Auto 0.1 K/mm3 (0-0.3); Eosinophils Percent Auto 1.3 % (0-4.4); Estimated CRCL calculation 33 ml/min; Estimated Glomerular Filt Rate 53; Glucose 95 mg/dL (65-110); Hemoglobin 10.8 g/dL (12.0-15.0); Immature Granulocyte Absolute 0.02 K/mm3 (0.00-0.031); Immature Granulocyte Percent A 0.4 % (0-0.5); Lymphocytes Absolute Auto 1.24 K/mm3 (0.9-3.2); Lymphocytes Percent Auto 23.6 % (18.3-44.2); Magnesium 2.1 mg/dL (1.6-2.3); Mean Corpuscular HGB Conc 33.8 g/dl (32-36); Mean Corpuscular Hemoglobin 33.9 pg (26-34); Mean Corpuscular Volume 100.3 fl (80-100); Mean Platelet Volume 9.9 fl (7.4-10.4); Monocytes Absolute Auto 0.3 K/mm3 (0.1-0.6); Monocytes Percent Auto 6.5 % (2.6-8.5); Neutrophils Absolute Auto 3.6 K/mm3 (1.3-6.7); Neutrophils Percent Auto 67.6 % (45.5-73.1); Platelet Count Result 309 k/mm3 (150-375); Potassium 4.1 mmol/L (3.4-5.0); Red Blood Count 3.19 M/mm3 (4.2-5.4); Red Cell Distribution Width 15.5 % (11.5-14.5); Sodium 138 mmol/L (137-145); White Blood Count 5.3 K/mm3 (4.5-10.0)
[2021-11-11 12:32] LABS: INR 1.1; Prothrombin Time 13.5 Seconds (11.1-14.7)
--- NOTE | 2021-11-11 13:09 | ECG_ITS ---
Measurements Intervals [place] Rate: 84 P: VA: 0 QRS: 56 QRSD: 85 T: 16 QT: 377 QTc: 448 Interpretive Statements ATRIAL FIBRILLATION NONSPECIFIC T-WAVE ABNORMALITY ABNORMAL RHYTHM ECG COMPARED TO ECG 05/01/2021 12:42:14 NO SIGNIFICANT CHANGE Electronically Signed On 11-11-2021 13:43:48 CDT by Dorota Molina M.D.
[2021-11-11 13:15] LABS: Add Urine Microscopic? NO; Appearance Urine Clear (Clear); Bilirubin Urine Negative (Negative); Blood Urine Negative (Negative); Color Urine Straw (Yellow); Glucose Urine UA Negative (Negative); Ketones Urine Negative (Negative); Leukocyte Esterase Ur Negative LEU/UL (Negative); Nitrate Urine Negative (Negative); Protein Urine Negative (Negative); Urobilinogen Urine Negative mg/dL (<2.0)
[2021-11-11 13:35] LABS: Specific Grav Ur 1.004 (1.001-1.035)
--- NOTE | 2021-11-11 15:00 | PM.IMHP ---
H&P: HPI History of Present Illness Date/Time: 11/11/21 15:00 Chief Complaint: Altered mental status. Narrative: This is an 85-year-old female with dementia, hypertension, hypothyroidism, atrial fibrillation no longer on anticoagulation due to history of GI bleed and fall risk, congestive heart failure, and rheumatoid arthritis who presented to the emergency department via EMS from the care home for evaluation of altered mental status. She is not the best historian due to her dementia and thus some of the following information is obtained via a review of her electronic medical records as well as discussions with her son and daughter who are at bedside, with the patient's permission. The patient's sister this week and her services were yesterday. After the they all met for lunch when the patient began choking on salad. At that time she nearly lost consciousness and family members described that she slumped over in the chair and she was pale, clammy, and barely had a palpable pulse. She was taken to [facility] in [place] where she had an upper endoscopy; the food bolus was removed and she was discharged. This morning family members were summoned to her snf facility the patient began having a choking episode after swallowing her pills and on sons arrival the patient had another episode similar to that yesterday where she became pale, clammy, and minimally responsive. Son describes that she appeared alert however her eyes were glazed over and she was unable to speak. Symptoms resolved within approximately 30 minutes and this will be the 4th such episode in the last 6 months or so. There was no mention of seizure activity and she has no history of seizures. The patient remembers the episodes and she indicated to me that she felt as though her tongue were thick and she was unable to speak. Brain CT showed no acute findings but did mention cerebral and cerebellar atrophy with cerebral atherosclerosis and chronic small-vessel ischemic changes of the cerebral white matter. I was called to admit the patient for possible TIA and she is being admitted in this setting. At the time my evaluation the patient is tired from the events of the past 2 days and she reports feeling tired. She has no other complaints and specifically denies vertigo, visual changes, facial droop, focal weakness, and paresthesias. She also denies chest pain, palpitations, shortness of breath, nausea, vomiting, diarrhea, and dysuria. Review of Systems Review of Systems: Twelve systems were reviewed and are negative except for as per HPI. [facility] Past Medical History Medical History (Updated 11/11/21 @ 22:38 by Patience Montenegro PA-C) Atrial fibrillation Not on anticoagulation due to history of GI bleed and falls. Chronic anemia Patient on iron supplementation. She also receives Epogen injection per her primary care provider. Combined congestive systolic and diastolic heart failure Echo in April 2021 showed mild concentric LVH, mildly diminished LV function with a calculated EF of 49%, grade 2 diastolic dysfunction, and probable right ventricular dysfunction. PASP was 29 mmHg. Dementia Gastroesophageal reflux disease Hyperlipidemia Hypertension Hypothyroidism Rheumatoid arthritis Surgical History Surgical History History of section History of cholecystectomy History of mitral valve replacement Family History Family History Other Dementia Diabetes mellitus Social History Social History (Updated 11/11/21 @ 22:38 by Patience Montenegro PA-C) Social History: Surrogate decision-maker: John Cabello, son. CODE STATUS: Full code. Smoking status: Never smoker Alcohol intake: never Substance use: never Additional living arrangements comments: Resident at [facility]. Ambulates with a walker. Jarono
--- NOTE | 2021-11-11 15:54 | ADMGEN ---
This patient, Yoselyn Cabello, was admitted to Medical Room 349-01. Patient/family oriented to hospital policies and general routines including ID bracelet, bed and alarms, visiting hours, pain management, procedures, bathroom and other care routines, personal items, smoking policy, room service/diet, and visiting hours. Information on how to activate the Rapid Response Team has been discussed. Patient/Family are encouraged to report perceived risks to care and to ask questions if they do not understand what they are told or what they should do.
[2021-11-12] VITALS (14 sets, daily range): BP systolic 105–132; BP diastolic 49–62; PULSE 74–107; RESP 16–18; TEMP 36.1–36.8; O2SAT 96–99
[2021-11-12] MEDS: LEVOTHYROXINE SODIUM 50 MCG TABLET PO (05:47)
[2021-11-12] MEDS: gemfibroziL 600 MG TABLET PO ×2 (05:47→17:02)
[2021-11-12 06:11] LABS: Iron 80 ug/dL (37-170)
[2021-11-12 06:21] LABS: Percent Iron Saturation 24 % (20-50)
[2021-11-12 07:07] LABS: Folic Acid 8.8 ng/mL (2.76->20)
--- NOTE | 2021-11-12 10:54 | WPDNEURCNPN ---
Assessment and Plan Additional Plan 1 TIA 2 considering the underlying atrial fibrillation MRI will be awaited for further changes and recommendation Consult date: 11/12/21 HPI: Yoselyn Cabello is a 85 year old female admitted to the hospital through the emergency room where she was brought with the complaints of choking episodes. Patient carries the diagnosis of 1. Dementia 2. Atrial fibrillation 3. Combined congestive systolic and diastolic heart failure with echocardiogram in April of 2021 not showing any intracavitary lesion 4. Rheumatoid arthritis 5. Hypothyroidism, patient is not a smoker not a drinker and lives at [facility] , initial evaluation documented her to be afebrile blood pressure 160/71,ab normal CBC basic metabolic, panel and UA CT of the head compatible with cerebral and cerebellar atrophy with no territorial stroke or bleed, EKG compatible with atrial fibrillation, and her medications as an outpatient included aspirin 81 mg daily with carvedilol 3.125 mg twice a day meet has a PN 30 mg daily Review of Systems Review of Systems: All systems reviewed & are unremarkable except as noted in HPI and below PMFSH Past Medical History Medical History Atrial fibrillation Not on anticoagulation due to history of GI bleed and falls. Chronic anemia Patient on iron supplementation. She also receives Epogen injection per her primary care provider. Combined congestive systolic and diastolic heart failure Echo in April 2021 showed mild concentric LVH, mildly diminished LV function with a calculated EF of 49%, grade 2 diastolic dysfunction, and probable right ventricular dysfunction. PASP was 29 mmHg. Dementia Gastroesophageal reflux disease Hyperlipidemia Hypertension Hypothyroidism Rheumatoid arthritis Surgical History Surgical History History of section History of cholecystectomy History of mitral valve replacement Family History Family History Other Dementia Diabetes mellitus Social History Social History Social History: Surrogate decision-maker: John Cabello, son. CODE STATUS: Full code. Smoking status: Never smoker Alcohol intake: never Substance use: never Additional living arrangements comments: Resident at [facility]. Ambulates with a walker. Additional occupation/education comments: Retired from working in a [employer] yard. Spiritual care concerns: No Meds Home Medications and Allergies Home Medications Medication Instructions Recorded Confirmed Type Geritol Complete 1 tablet PO DAILY 05/01/21 11/11/21 History aspirin [Aspirin Low Dose] 81 mg PO DAILY 05/01/21 11/11/21 History carvedilol 3.125 mg PO BID 05/01/21 11/11/21 History cyanocobalamin (vitamin B-12) 250 mcg PO DAILY 05/01/21 11/11/21 History ferrous sulfate 325 mg PO DAILY 05/01/21 11/11/21 History gemfibrozil 600 mg PO BID 05/01/21 11/11/21 History levothyroxine 50 mcg PO DAILY 05/01/21 11/11/21 History methotrexate sodium 5 mg PO WEEKLY 05/01/21 11/11/21 History mirtazapine 30 mg PO DAILY 05/01/21 11/11/21 History omeprazole 20 mg PO DAILY 05/01/21 11/11/21 History spironolactone 12.5 mg PO DAILY 05/01/21 11/11/21 History prednisolone 5 mg PO DAILY #7 tablet 05/02/21 11/11/21 Rx docusate sodium [Dulcolax Stool 1 mg PO DAILY 11/11/21 11/11/21 History Softener (dss)] Allergies Allergy/AdvReac Type Severity Reaction Status Date / Time No Known Allergies Allergy Verified 11/11/21 11:47 Vital Signs Vital Signs - 24 hr 11/11/21 11:18 11/11/21 11:48 11/11/21 13:04 Temperature 36.8 C Pulse Rate 81 88 Respiratory Rate 13 16 16 Blood Pressure 160/71 H Pulse Oximetry 98 99 98 11/11/21 13:23 11/11/21 15:40 11/11/21 16:00 Temperature 36.4 C Pulse Rate 79
[2021-11-12] MEDS: DOCUSATE SODIUM 100 MG CAPSULE PO (11:35)
[2021-11-12] MEDS: predniSONE 5 MG TABLET PO (11:36)
[2021-11-12] MEDS: FERROUS SULFATE 324 MG TABLET PO (11:36)
[2021-11-12] MEDS: PANTOPRAZOLE 40 MG TABLET PO (11:36)
[2021-11-12] MEDS: SPIRONOLACTONE 12.5 MG TABLET PO (11:36)
[2021-11-12] MEDS: ASPIRIN 81 MG ENTERIC TABLET PO (11:36)
[2021-11-12] MEDS: carvediloL 3.125 MG TABLET PO ×2 (11:37→17:02)
[2021-11-12] MEDS: MULTIVITAMINS /C LUTEIN (CENTRUM SILVER) TABLET *BKC 1 TAB PO (11:37)
[2021-11-12] MEDS: CYANOCOBALAMIN 250 MCG TABLET PO (11:37)
[2021-11-12] MEDS: MIRTAZAPINE 30 MG TABLET PO (11:37)
--- NOTE | 2021-11-12 13:10 | PCSTNOTE ---
Please refer to the Modified Barium Swallow Evaluation in the EMR.
--- NOTE | 2021-11-12 14:49 | PM.IMPN ---
Progress Note: A&P Assessment and Plan (1) Recurrent episodes of unresponsiveness: Code(s): R41.89 - Other symptoms and signs involving cognitive functions and awareness Status: Acute Assessment and Plan: Family members described for separate instances over the last 6 months, 2 in the past 24 hours, and which the patient slumped over in the chair and seems to be alert however she does not respond or follow commands. Yesterday she was also pale and diaphoretic with a very faint pulse. This occurred near the end of her choking episode and I am wondering if this may be related to a vagal response however it lasted for upwards of 30 minutes. I suppose she could be having subclinical seizures as well. She does have chronic atrial fibrillation and is not anticoagulated due to history of GI bleed and falls thus TIA and stroke are possible though these episodes are a bit unusual for that. Brain MRI and EEG pending as well as Neurology consult. (2) Dysphagia: Code(s): R13.10 - Dysphagia, unspecified Status: Acute Assessment and Plan: Modified barium swallow positive for dysphagia, patient placed on a level 4 pureed diet (3) Atrial fibrillation: Code(s): I48.91 - Unspecified atrial fibrillation Status: Acute Assessment and Plan: Rate controlled. She is not on long-term anticoagulation due to history of GI bleed and falls. (4) Hypertension: Code(s): I10 - Essential (primary) hypertension Status: Acute Assessment and Plan: Blood pressures were reviewed and they are stable. Continue antihypertensives and monitor daily. (5) Hypothyroidism: Code(s): E03.9 - Hypothyroidism, unspecified Status: Acute Assessment and Plan: Continue levothyroxine, TSH checked and within normal limits (6) Chronic anemia: Code(s): D64.9 - Anemia, unspecified Status: Acute Assessment and Plan: Hemoglobin and hematocrit are stable on review of previous labs. Continue ferrous sulfate and cyanocobalamin supplements. (7) Rheumatoid arthritis: Code(s): M06.9 - Rheumatoid arthritis, unspecified Status: Acute Assessment and Plan: No acute issues; on methotrexate weekly. (8) Combined congestive systolic and diastolic heart failure: Code(s): I50.40 - Unspecified combined systolic (congestive) and diastolic (congestive) heart failure Status: Acute Assessment and Plan: Clinically compensated. Continue carvedilol and spironolactone. Subjective Date/time seen: 11/12/21 14:49 Patient resting comfortably without any complaints. She denies any fevers or chills. No nausea vomiting diarrhea. No chest pain or shortness of breath. No events noted overnight. Son is in the room and gives most of the history. Review of Systems Review of Systems: All systems reviewed & are unremarkable except as noted in HPI and below Exam Narrative: General: Frail elderly female sitting up in bed. Weight: 60.6 kg. BMI: 21.6. HEENT: Normocephalic, atraumatic. PERRL, EOMI. Sclerae anicteric. Tacky mucous membranes. Neck: Supple. No JVD or obvious bruits. Respiratory: Lungs are clear to auscultation bilaterally. Cardiovascular: Irregularly irregular rate and rhythm with normal S1-S2. Gastrointestinal: Abdomen is soft, nontender, and nondistended with positive bowel sounds. Skin: Warm and dry. No rash or lesions on limited exam. Extremities: No cyanosis, clubbing, or edema. Radial and pedal pulses intact. Neurological: Alert and oriented to name and day/month of . She is aware that she is in the hospital. She cannot provide me her current age, the current year, or the name of the president at this time. Cranial nerves 2-12 are grossly intact. She is soft-spoken but speech is clear. No facial asymmetry. Tongue is midline. Normal [id number]. No pronator drift. Helped her to the bathroom and she was a bit
[2021-11-13] VITALS (10 sets, daily range): BP systolic 111–152; BP diastolic 52–70; PULSE 77–95; RESP 16; TEMP 36.4–36.7; O2SAT 97–99
[2021-11-13] MEDS: gemfibroziL 600 MG TABLET PO ×2 (05:37→17:00)
[2021-11-13] MEDS: LEVOTHYROXINE SODIUM 50 MCG TABLET PO (05:37)
[2021-11-13] MEDS: CYANOCOBALAMIN 250 MCG TABLET PO (09:54)
[2021-11-13] MEDS: MIRTAZAPINE 30 MG TABLET PO (09:54)
[2021-11-13] MEDS: DOCUSATE SODIUM 100 MG CAPSULE PO (09:54)
[2021-11-13] MEDS: predniSONE 5 MG TABLET PO (09:54)
[2021-11-13] MEDS: SPIRONOLACTONE 12.5 MG TABLET PO (09:54)
[2021-11-13] MEDS: PANTOPRAZOLE 40 MG TABLET PO (09:54)
[2021-11-13] MEDS: MULTIVITAMINS /C LUTEIN (CENTRUM SILVER) TABLET *BKC 1 TAB PO (09:54)
[2021-11-13] MEDS: carvediloL 3.125 MG TABLET PO ×2 (09:54→17:00)
[2021-11-13] MEDS: FERROUS SULFATE 324 MG TABLET PO (09:54)
[2021-11-13] MEDS: ASPIRIN 81 MG ENTERIC TABLET PO (10:05)
--- NOTE | 2021-11-13 13:25 | PM.DS ---
DS: Admitting Diagnosis Discharge Date November 13, 2021 Admitting Diagnosis Altered mental status DS: Summary Hospital Course Reason for hospitalization: Altered mental status Hospital Course: 85-year-old female past medical history significant for dementia, hypertension, hypothyroidism atrial fibrillation not on anticoagulation with altered mental status. Her son is in the room and provides most of the history. Apparently she has had multiple episodes confusion or altered mental status that resolved relatively quickly under thought to be outpatient TIAs per prior physician workup. This time, she also had an episode of choking with her altered mental status. She had an urgent upper endoscopy where a piece of food was removed and she was then discharged in good condition. However, the next day, the patient had another episode of choking while she was trying to take her morning pills and was sent back to the ER. That time, she was pale diaphoretic and minimally responsive. Symptoms resolved with an hour so. She is admitted for further evaluation of possible CVA versus TIA. Neurology was consulted and recommended an MRI and EEG. MRI showed no acute CVA, but it did show small foci reflective of prior microhemorrhages as well as moderate white matter disease. Neurology recommended discharge with close outpatient follow-up and possible re-evaluation of anticoagulation after discussing risks and benefits with Cardiology. Modified barium swallow was performed and showed silent aspiration. Patient was placed on a level for pureed diet to prevent aspiration pneumonia. She will be discharged on this diet with close swallow study outpatient monitoring and therapy. Status at Discharge Functional status at discharge: independent ambulation Overall status at discharge: patient is progressing back to baseline Time Spent with Patient Time attestation: Total time spent providing and/or coordinating discharge services: Time spent: Less than 30 minutes Exam Const: General: no acute distress HENMT: Mouth: Yes moist mucous membranes Eyes: General: appearance normal, both eyes and all related structures Neck: Neck: no JVD Resp: Auscultation: clear to auscultation bilaterally Cardio: Rhythm: abnormal rhythm GI: Inspection: non-distended GI Palp: Yes Soft to palpation and No Tenderness to palpation present (GI) Psych: Mental Status: mental status grossly normal Discharge Plan Discharge Attending physician on discharge: Kenyatta Monte Consulting providers: Jamal Franklin Discharging Clinician: Kenyatta Monte Anticipated Discharge Date/Time: 11/13/21 13:20 Patient Disposition: Home Health Service Activity: as tolerated Diet: other - see discharge instructions Discharge Instructions: Per Care Coordination, patient to discharge with [facility] ([phone]) for PT/OT, Speech Therapy, and Prison Services. Please fax discharge instructions and medication sheets to [phone]. Level 4 pureed diet Patient Instructions: Antibiotic Form, Transient Ischemic Attack (DC) Stand Alone Forms: General Discharge Information Follow-up/Referrals: Dima Hale MD [Physician] - Jamal Franklin MD [Physician] - Dorota Molina MD [Physician] - Discharge Medications: Continued cyanocobalamin (vitamin B-12) 100 mcg tablet 250 mcg PO DAILY RF: 0 aspirin [Aspirin Low Dose] 81 mg tablet,delayed release (DR/EC) 81 mg PO DAILY RF: 0 spironolactone 25 mg tablet 12.5 mg PO DAILY RF: 0 carvedilol 3.125 mg tablet 3.125 mg PO BID RF: 0 methotrexate sodium 2.5 mg tablet 5 mg PO WEEKLY RF: 0 gemfibrozil 600 mg tablet 600 mg PO BID RF: 0 levothyroxine 50 mcg tablet 50 mcg PO DAILY RF: 0 mirtazapine 30 mg tablet 30 mg PO DAILY RF: 0 ferrous sulfate 325 mg (65 mg iron) tablet 325 mg PO DAILY RF: 0 omeprazole 20 mg capsule,delayed release(DR/EC) 20 mg PO
--- NOTE | 2021-11-14 10:55 | WPDNEUROLOGY ---
Neurology EEG Report General Information Date of Study: 11/13/21 TEST eeg DIAGNOSIS unresponsive episode CONDITION OF RECORDING drowsy and sleep EEG NUMBER [id number] CLINICAL HISTORY patient is not sure why she would be having this test EEG DESCRIPTION background rhythm consists of low voltage to medium voltage poorly organized 8 to 9 hertz per 2nd alpha posteriorly admixed with low-voltage to medium voltage 6 to 7 hertz per 2nd theta activity. Bilateral symmetrical sleep activity seen during sleep. Hyperventilation not done. Photic stimulation not done. Non paroxysmal. Nonfocal. Nonlateralizing. IMPRESSION No significant abnormalities noted
== END 2021-11-13 17:40 | disposition home health service (06) ==
LOC: ANHED 13:11 → ANH3MED 11-13 12:33
PROVIDERS: Physician Assistant; Admitting Provider Family Medicine; Emergency Provider Emergency Medicine; Visit Provider Student in an Organized Health Care Education/Training Program
DX: R41.82 Altered mental status, unspecified (principal); I11.0 Hypertensive heart disease with heart failure; R13.10 Dysphagia, unspecified; I50.40 Unspecified combined systolic (congestive) and diastolic (congestive) heart failure; E78.5 Hyperlipidemia, unspecified; E03.9 Hypothyroidism, unspecified; F03.90 Unspecified dementia, unspecified severity, without behavioral disturbance, psychotic disturbance, mood disturbance, and anxiety; D64.9 Anemia, unspecified; I48.91 Unspecified atrial fibrillation; M06.9 Rheumatoid arthritis, unspecified; Z79.82 Long term (current) use of aspirin; Z95.4 Presence of other heart-valve replacement
CPT/HCPCS: 36415; 51701; 70450; 70553; 80053; 81003; 82607; 82728; 82746; 83540; 83550; 83735; 84443; 85025; 85610; 92526; 92611; 93005; 95816; 97161; 97165; 99285; A9270; A9577; G0378; J7512

== ENCOUNTER 2022-04-21 10:34 | Emergency (ER) | payer MEDICARE, SELFPAY ==
[2022-04-21] VITALS (8 sets, daily range): BP systolic 122–151; BP diastolic 67–84; PULSE 72–90; RESP 13–18; TEMP 36.4; O2SAT 98–100
--- NOTE | ~2022-04-21 | CT_ITS ---
EXAMINATION: CT abdomen pelvis w con DATE: 04/21/2022 13:06 INDICATION: Bilateral flank pain. Pain with urination. TECHNIQUE: Computed tomography (CT) of the abdomen and pelvis was performed with 100 cc Omnipaque 350 intravenous contrast. The dose-length product was 387.09 mGy-cm. Automated exposure control and iter ative reconstruction technique were employed. COMPARISON: None. FINDINGS: Cardiomegaly. No significant pleural or pericardial effusion. The liver is incompletely vis ualized. Status post cholecystectomy. The spleen, pancreas, adrenal glands are unremarkable. There ar e small low-density lesions in both kidneys, most likely benign cysts. No ureteral stones or hydronep hrosis. Bladder is unremarkable. There is a pessary device in the vagina. Nonobstructive bowel gas pa ttern. There is atherosclerosis of the aorta without aneurysm. No lymphadenopathy. Normal appendix. C olonic diverticulosis without evidence for diverticulitis. No free air or free fluid. There is a supe rior endplate compression fracture of L3, likely chronic. There is osteoarthritis of the hips. IMPRESSION: 1. No acute abdominal abnormality. Reviewed, dictated and finalized at location A.
[2022-04-21 11:05] LABS: Basophils Absolute Auto 0.1 K/mm3 (0.0-0.1); Basophils Percent Auto 1.2 % (0.2-1.2); Eosinophils Absolute Auto 0.1 K/mm3 (0-0.3); Hematocrit 37.5 % (37.0-47.0); Hemoglobin 11.6 g/dL (12.0-15.0); Immature Granulocyte Absolute 0.01 K/mm3 (0.00-0.031); Immature Granulocyte Percent A 0.2 % (0-0.5); Lymphocytes Absolute Auto 0.98 K/mm3 (0.9-3.2); Mean Corpuscular HGB Conc 30.9 g/dl (32-36); Mean Corpuscular Hemoglobin 33.1 pg (26-34); Mean Corpuscular Volume 107.1 fl (80-100); Mean Platelet Volume 9.6 fl (7.4-10.4); Monocytes Absolute Auto 0.4 K/mm3 (0.1-0.6); Monocytes Percent Auto 9.4 % (2.6-8.5); Neutrophils Absolute Auto 2.7 K/mm3 (1.3-6.7); Neutrophils Percent Auto 63.2 % (45.5-73.1); Platelet Count Result 317 k/mm3 (150-375); Red Cell Distribution Width 15.3 % (11.5-14.5); White Blood Count 4.3 K/mm3 (4.5-10.0)
[2022-04-21 11:21] LABS: Alanine Aminotransferase 20 U/L (6-35); Albumin Level 4.6 g/dL (3.5-5.1); Alkaline Phosphatase 173 U/L (38-126); Anion Gap 9 mmol/L (8-16); Aspartate Amino Transferase 36 U/L (14-36); Bilirubin,Total 0.5 mg/dL (0.2-1.3); Blood Urea Nitrogen 22 mg/dL (7-17); Calcium 9.5 mg/dL (8.4-10.2); Carbon Dioxide 23 mmol/L (22-30); Chloride 105 mmol/L (98-107); Estimated CRCL calculation 36 ml/min; Estimated Glomerular Filt Rate 59; Glucose 81 mg/dL (65-110); Potassium 4.2 mmol/L (3.4-5.0); Sodium 137 mmol/L (137-145)
[2022-04-21 12:08] LABS: Eosinophils Absolute Manual 0.04 K/mm3 (0.02-0.5); Eosinophils Percent Manual 1 % (0-4); Lymphocytes Absolute Manual 0.81 K/mm3 (1.1-4.5); Monocytes Absolute Manual 0.17 K/mm3 (0.1-0.90); Monocytes Percent Manual 4 % (3-9); Neutrophils Percent Manual 76 % (46-73); Platelet Estimate Adequate (Adequate); Total Cells Counted 100
--- NOTE | 2022-04-21 12:08 | ED.GENADULT ---
HPI - General Adult General Chief complaint: Urogenital-Female Stated complaint: right flank pain, burning upon urination Time Seen by Provider: 04/21/22 11:32 Source: RN notes reviewed History of Present Illness HPI narrative: Patient presents emergency department from home for flank pain and dysuria. History is per the patient as well as patient's daughter is present the patient's been having dysuria over the past month approximately month ago she was diagnosed with a UTI and was treated with antibiotics but her symptoms of dysuria never resolved the patient is also developed over the past week pain in the bilateral flanks goes in the lower abdomen patient denies any fevers or chills nausea vomiting diarrhea or any other symptoms Related Data Home Medications Medication Instructions Recorded Confirmed aspirin 81 mg tablet,delayed 81 mg PO DAILY 05/01/21 11/24/21 release (Adrián Low Dose Aspirin) carvedilol 3.125 mg tablet 3.125 mg PO BID 05/01/21 11/24/21 cyanocobalamin (vitamin B-12) 100 250 mcg PO DAILY 05/01/21 11/24/21 mcg tablet ferrous sulfate 325 mg (65 mg 325 mg PO DAILY 05/01/21 11/24/21 iron) tablet gemfibrozil 600 mg tablet 600 mg PO BID 05/01/21 11/24/21 levothyroxine 50 mcg tablet 50 mcg PO DAILY 05/01/21 11/24/21 methotrexate sodium 2.5 mg tablet 5 mg PO WEEKLY 05/01/21 11/24/21 mirtazapine 30 mg tablet 30 mg PO DAILY 05/01/21 11/24/21 multivitamin with min 1 tablet PO DAILY 05/01/21 11/24/21 no.36-iron,carbonyl-FA 16 mg iron-0.38 mg tablet (Geritol Complete) omeprazole 20 mg capsule,delayed 20 mg PO DAILY 05/01/21 11/24/21 release spironolactone 25 mg tablet 12.5 mg PO DAILY 05/01/21 11/24/21 docusate sodium 100 mg capsule 1 mg PO DAILY 11/11/21 11/24/21 (Dulcolax Stool Softener (docusate)) Allergies Allergy/AdvReac Type Severity Reaction Status Date / Time No Known Allergies Allergy Verified 11/24/21 13:15 Review of Systems Review of Systems: Gen.: Denies fevers or chills ENT: Denies congestion Respiratory: Denies shortness of breath or cough CV: Denies chest pain or palpitations GI: Reports lower abdominal pain and flank pain. Denies nausea, emesis or diarrhea reports dysuria Musculoskeletal: Denies back pain or muscle pain Neuro: Denies numbness, tingling, weakness or focal weakness Skin: Denies rash Except as documented, all other systems reviewed and negative PMFSH Past Medical History Medical History Atrial fibrillation Not on anticoagulation due to history of GI bleed and falls. Chronic anemia Patient on iron supplementation. She also receives Epogen injection per her primary care provider. Combined congestive systolic and diastolic heart failure Echo in April 2021 showed mild concentric LVH, mildly diminished LV function with a calculated EF of 49%, grade 2 diastolic dysfunction, and probable right ventricular dysfunction. PASP was 29 mmHg. Dementia Gastroesophageal reflux disease Hyperlipidemia Hypertension Hypothyroidism Rheumatoid arthritis Surgical History Surgical History History of section History of cholecystectomy History of mitral valve replacement Family History Family History Other Dementia Diabetes mellitus Social History Social History Social History: Surrogate decision-maker: John Cabello, son. CODE STATUS: Full code. Smoking status: Never smoker Alcohol intake: never Substance use: never Additional living arrangements comments: Resident at [facility]. Ambulates with a walker. Additional occupation/education comments: Retired from working in a [employer] yard. Spiritual care concerns: No Exam Narrative: APPEARANCE: No acute distress, nontoxic, resting in bed EYES: E
[2022-04-21 12:09] LABS: Add Urine Microscopic? YES; Appearance Urine Clear (Clear); Bacteria Urine Trace /hpf; Bilirubin Urine Negative (Negative); Blood Urine Negative (Negative); Color Urine Yellow (Yellow); Glucose Urine UA Negative (Negative); Ketones Urine Negative (Negative); Leukocyte Esterase Ur 2+ LEU/UL (Negative); Mucus Urine Rare /lpf; Nitrate Urine Negative (Negative); Protein Urine Negative (Negative); RBC Urine 0-2 /hpf (0-2); Specific Grav Ur 1.009 (1.001-1.035); Squamous Epithelial Cell Urine Rare /hpf (Few); Urobilinogen Urine Negative mg/dL (<2.0); WBC Urine 16-20 /hpf
[2022-04-21 12:29] LABS: Schistocytes None Seen (NORMAL)
[2022-04-21 12:30] LABS: Anisocytosis 2+ (NORMAL); Macrocytosis 1+ (NORMAL); Microcytosis 2+ (NORMAL)
== END 2022-04-21 14:17 | disposition home or self-care (01) ==
PROVIDERS: Physician Assistant; Emergency Provider Emergency Medicine
DX: N39.0 Urinary tract infection, site not specified (principal); R10.30 Lower abdominal pain, unspecified; I48.91 Unspecified atrial fibrillation; D64.9 Anemia, unspecified; I11.0 Hypertensive heart disease with heart failure; I50.40 Unspecified combined systolic (congestive) and diastolic (congestive) heart failure; F03.90 Unspecified dementia, unspecified severity, without behavioral disturbance, psychotic disturbance, mood disturbance, and anxiety; K21.9 Gastro-esophageal reflux disease without esophagitis; E78.5 Hyperlipidemia, unspecified; E03.9 Hypothyroidism, unspecified; M06.9 Rheumatoid arthritis, unspecified; Z79.82 Long term (current) use of aspirin; Z79.84 Long term (current) use of oral hypoglycemic drugs; Z95.4 Presence of other heart-valve replacement
CPT/HCPCS: 36415; 74177; 80053; 81001; 85025; 87086; 87088; 96365; 99284; J0696; Q9967

== ENCOUNTER 2022-08-18 13:48 | Observation (INO) | payer MEDICARE, SELFPAY ==
--- NOTE | 2022-08-18 13:54 | ED.GIBLEED ---
HPI - GI Bleed General Chief complaint: GI Bleed Stated complaint: rectal bleeding Time Seen by Provider: 08/18/22 13:50 Source: patient, family and EMS Mode of arrival: EMS Limitations: dementia History of Present Illness HPI Narrative: Patient is 86 years old white female came from assisting living with her son by ambulance was telling me that patient been having fresh red bright blood in the last 2 to 3 days. Patient had 2 bowel movement yesterday and once today. He reports having similar symptoms 2 years ago and with a diagnosis of possible bleeding secondary to hemorrhoids and the decision at that time that patient cannot tolerate colonoscopy and did not have it at that time. Currently patient on aspirin, no anticoagulant medications. Patient denies any fever, chills, nausea, vomiting, abdominal pain or any other complaints. Patient does not know why she is here. Related Data Home Medications Medication Instructions Recorded Confirmed aspirin 81 mg tablet,delayed 81 mg PO DAILY 05/01/21 08/18/22 release (Adrián Low Dose Aspirin) carvedilol 3.125 mg tablet 3.125 mg PO BID 05/01/21 08/18/22 cyanocobalamin (vitamin B-12) 100 250 mcg PO DAILY 05/01/21 08/18/22 mcg tablet ferrous sulfate 325 mg (65 mg 325 mg PO DAILY 05/01/21 08/18/22 iron) tablet gemfibrozil 600 mg tablet 600 mg PO BID 05/01/21 08/18/22 levothyroxine 50 mcg tablet 50 mcg PO DAILY 05/01/21 08/18/22 methotrexate sodium 2.5 mg tablet 5 mg PO WEEKLY 05/01/21 08/18/22 mirtazapine 30 mg tablet 30 mg PO DAILY 05/01/21 08/18/22 multivitamin with min 1 tablet PO DAILY 05/01/21 08/18/22 no.36-iron,carbonyl-FA 16 mg iron-0.38 mg tablet (Geritol Complete) omeprazole 20 mg capsule,delayed 20 mg PO DAILY 05/01/21 08/18/22 release spironolactone 25 mg tablet 12.5 mg PO DAILY 05/01/21 08/18/22 docusate sodium 100 mg capsule 1 mg PO DAILY 11/11/21 08/18/22 (Dulcolax Stool Softener (docusate)) Retacrit 1,000 units IM MONTHLY anemia 08/18/22 08/18/22 alprazolam 0.25 mg tablet 0.285 mg PO TID PRN Anxiety 08/18/22 08/18/22 Allergies Allergy/AdvReac Type Severity Reaction Status Date / Time No Known Allergies Allergy Verified 08/18/22 14:06 Review of Systems Review of Systems: All systems reviewed & are unremarkable except as noted in HPI and below PMFSH Past Medical History Medical History Atrial fibrillation Not on anticoagulation due to history of GI bleed and falls. Chronic anemia Patient on iron supplementation. She also receives Epogen injection per her primary care provider. Combined congestive systolic and diastolic heart failure Echo in April 2021 showed mild concentric LVH, mildly diminished LV function with a calculated EF of 49%, grade 2 diastolic dysfunction, and probable right ventricular dysfunction. PASP was 29 mmHg. Dementia Gastroesophageal reflux disease Hyperlipidemia Hypertension Hypothyroidism Rheumatoid arthritis Surgical History Surgical History History of section History of cholecystectomy History of mitral valve replacement Family History Family History Sibling Dementia Diabetes mellitus Social History Social History (Updated 08/18/22 @ 19:22 by Jennifer Arreguin NP) Social History: Surrogate decision-maker: John Cabello, son. She had three children and one of the twins . She retired from a [employer] yard. She is She lives at [facility] living. CODE STATUS: DNR Smoking status: Never smoker Alcohol intake: never Substance use: never Substance use type: does not use Lack of Transportation: No Lack of Food: Never True Current Housing: I Have Housing Concerned About Future Housing: No Difficulty Paying Gas/Electric Bills: No Difficulty Paying for Meds: No Currently Unemployed: No [employer]
[2022-08-18 13:58] VITALS: BP 130/66; PULSE 83; RESP 18; TEMP 36.5; O2SAT 96
[2022-08-18 14:07] VITALS: BP 127/74; PULSE 85; RESP 16; O2SAT 98
[2022-08-18] MEDS: PANTOPRAZOLE SODIUM IV 40 MG VIAL IV PUSH ×2 (14:26→20:51)
[2022-08-18] MEDS: SODIUM CHLORIDE 0.9% IV 1,000 ML 200 ML IV CONT (14:26)
[2022-08-18 14:33] LABS: Basophils Percent Auto 0.8 % (0.2-1.2); Eosinophils Absolute Auto 0.1 K/mm3 (0-0.3); Eosinophils Percent Auto 3.3 % (0-4.4); Hematocrit 32.8 % (37.0-47.0); Hemoglobin 10.8 g/dL (12.0-15.0); Immature Granulocyte Absolute 0.02 K/mm3 (0.00-0.031); Immature Granulocyte Percent A 0.5 % (0-0.5); Mean Corpuscular HGB Conc 32.9 g/dl (32-36); Mean Corpuscular Hemoglobin 33.6 pg (26-34); Mean Corpuscular Volume 102.2 fl (80-100); Mean Platelet Volume 9.1 fl (7.4-10.4); Monocytes Absolute Auto 0.5 K/mm3 (0.1-0.6); Monocytes Percent Auto 12.9 % (2.6-8.5); Neutrophils Absolute Auto 2.2 K/mm3 (1.3-6.7); Neutrophils Percent Auto 60.5 % (45.5-73.1); Platelet Count Result 365 k/mm3 (150-375); Red Blood Count 3.21 M/mm3 (4.2-5.4); Red Cell Distribution Width 15.4 % (11.5-14.5); White Blood Count 3.6 K/mm3 (4.5-10.0)
[2022-08-18 14:42] LABS: Lactic Acid Reflex 1.4 mmol/L (0.7-2.0)
[2022-08-18 14:43] LABS: Alanine Aminotransferase 19 U/L (6-35); Albumin Level 4.3 g/dL (3.5-5.1); Alkaline Phosphatase 175 U/L (38-126); Anion Gap 5 mmol/L (8-16); Aspartate Amino Transferase 40 U/L (14-36); Bilirubin,Total 0.5 mg/dL (0.2-1.3); Blood Urea Nitrogen 25 mg/dL (7-17); Calcium 9.3 mg/dL (8.4-10.2); Carbon Dioxide 29 mmol/L (22-30); Chloride 102 mmol/L (98-107); Estimated CRCL calculation 36 ml/min; Estimated Glomerular Filt Rate 59; Glucose 112 mg/dL (65-110); INR 1.1; Magnesium 1.9 mg/dL (1.6-2.3); Potassium 4.6 mmol/L (3.4-5.0); Prothrombin Time 13.6 Seconds (11.1-14.7); Sodium 136 mmol/L (137-145)
--- NOTE | 2022-08-18 16:01 | PM.IMHP ---
H&P: HPI History of Present Illness Date/Time: 08/18/22 16:01 Chief Complaint: Rectal bleeding Narrative: This is a 86-year-old female patient who resides at in [facility]. The patient has a history of hemorrhoids. The patient had fresh red blood coming from her rectum in the last 2-3 days. The patient had 2 bowel movements yesterday and once today. The patient stated she had this similar symptoms 2 years ago and was diagnosed with hemorrhoids. The patient stated that she would not go through another colonoscopy at her age. The ED provider stated that she had bleeding hemorrhoids. No GI specialist is available at this time.The patient and her son are aware that there is no GI specialist available over the weekend. H&H is 10.2 and 31.8. White count is 3.6. Sodium 136. Influenza a any and COVID negative. The patient is being admitted to observation on the date of service on 08/18/22 Review of Systems Review of Systems: see hpi All systems reviewed & are unremarkable except as noted in HPI and below Constitutional: Constitutional: Reports as per HPI and Reports no additional constitutional complaints Eyes: Eyes: Reports as per HPI and Reports no additional eye complaints ENT: Reports system reviewed and no additional complaints, except as documented and Reports Normal hearing present Cardiovascular: Cardiovascular: Reports no additional cardiovascular complaints Respiratory: Respiratory: Reports no additional respiratory complaints and Reports no additional respiratory complaints Gastrointestinal: Gastrointestinal: Reports as per HPI and Reports no additional gastrointestinal complaints Musculoskeletal: Musculoskeletal: Reports no additional musculoskeletal complaints Integumentary/Breasts: Skin/Breast: Reports system reviewed and no additional complaints, except as docu and Reports as per HPI Neurologic: Reports system reviewed and no additional complaints, except as documented, Reports as per HPI and Reports Normal hearing present Psychiatric: Psychiatric: Reports no additional psychiatric complaints and Reports as per HPI Endocrine: Endocrine: Reports no additional endocrine complaints Hematologic/Lymphatic: Hematologic/Lymphatic: Reports no additional hematologic/lymphatic complaints Allergic/Immunologic: Allergic/Immunologic: Reports no additional allergic/immunologic complaints PMFSH Past Medical History Medical History Atrial fibrillation Not on anticoagulation due to history of GI bleed and falls. Chronic anemia Patient on iron supplementation. She also receives Epogen injection per her primary care provider. Combined congestive systolic and diastolic heart failure Echo in April 2021 showed mild concentric LVH, mildly diminished LV function with a calculated EF of 49%, grade 2 diastolic dysfunction, and probable right ventricular dysfunction. PASP was 29 mmHg. Dementia Gastroesophageal reflux disease Hyperlipidemia Hypertension Hypothyroidism Rheumatoid arthritis Surgical History Surgical History History of section History of cholecystectomy History of mitral valve replacement Family History Family History Sibling Dementia Diabetes mellitus Social History Social History (Updated 08/18/22 @ 19:22 by Jennifer Arreguin NP) Social History: Surrogate decision-maker: John Cabello, son. She had three children and one of the twins . She retired from a [employer] yard. She is She lives at [facility]. CODE STATUS: DNR Smoking status: Never smoker Alcohol intake: never Substance use: never Substance use type: does not use Lack of Transportation: No Lack of Food: Never True Current Housing: I Have Housing Concerned About Future Housing: No Difficulty Paying Gas/Electric Bills:
[2022-08-18 16:07] LABS: Hematocrit 31.8 % (37.0-47.0); Hemoglobin 10.2 g/dL (12.0-15.0)
[2022-08-18] MEDS: HYDROCORTISONE ACETATE 25 MG SUPPOSITORY RECTAL ×2 (16:19→20:51)
[2022-08-18 16:26] VITALS: BP 136/62; PULSE 89; RESP 18; O2SAT 98
[2022-08-18 16:42] LABS: Influenza A QL RT-PCR Negative (Negative); Influenza B QL RT-PCR Negative (Negative); SARS-CoV-2 RNA PCR Negative
[2022-08-18 17:33] VITALS: BP 132/67; PULSE 80; RESP 18; O2SAT 99
[2022-08-18 18:10] VITALS: BMI 21.9
--- NOTE | 2022-08-18 18:23 | ADMGEN ---
This patient, Yoselyn Cabello, was admitted to Medical Room 253-01. Patient/family oriented to hospital policies and general routines including ID bracelet, bed and alarms, visiting hours, pain management, procedures, bathroom and other care routines, personal items, smoking policy, room service/diet, and visiting hours. Information on how to activate the Rapid Response Team has been discussed. Patient/Family are encouraged to report perceived risks to care and to ask questions if they do not understand what they are told or what they should do.
[2022-08-18 19:05] VITALS: BMI 21.9
[2022-08-18] MEDS: SODIUM CHLORIDE 0.9% IV 1,000 ML 60 ML IV CONT (19:12)
--- NOTE | 2022-08-18 19:53 | PC.NURSE ---
Pt son states Yoselyn has a lead pl sql developer that she sees every month & receives retacrit IM injections in the office. Asks that we clarify whether it will be necessary for patient to see a lead pl sql developer in the hospital.
[2022-08-18 20:51] VITALS: PULSE 80
[2022-08-18] MEDS: carvediloL 3.125 MG TABLET PO (20:51)
[2022-08-18] MEDS: ALPRAZolam (*CRX) 0.25 MG TABLET PO (20:51)
[2022-08-18 21:03] LABS: Hematocrit 29.8 % (37.0-47.0); Hemoglobin 9.7 g/dL (12.0-15.0)
[2022-08-18 21:04] LABS: Immature Reticulocyte Fraction 4.4 % (3.0-15.9); Reticulocyte Hemoglobin Conten 34.1 pg (28.2-35.7); Reticulocyte Percent 2.75 % (0.7-4.3); Reticulocytes Absolute 0.08 B/L (32.2-175.7)
[2022-08-18 21:51] LABS: Bilirubin,Total 0.4 mg/dL (0.2-1.3); Iron 56 ug/dL (37-170); Lactate Dehydrogenase 247 U/L (120-246)
[2022-08-18 22:00] VITALS: BP 135/65; PULSE 74; RESP 14; TEMP 36.6; O2SAT 94
[2022-08-18 22:07] LABS: Transferrin 214 mg/dL (206-381)
[2022-08-18 22:11] LABS: Percent Iron Saturation 18 % (20-50)
[2022-08-18 23:33] LABS: Folic Acid > 20.0 ng/mL (2.76->20)
[2022-08-19] MEDS: ACETAMINOPHEN 325 MG TABLET 650 MG PO (05:37)
[2022-08-19] MEDS: LEVOTHYROXINE SODIUM 50 MCG TABLET PO (05:37)
[2022-08-19 06:00] VITALS: BP 101/61; PULSE 76; RESP 14; TEMP 36.6; O2SAT 100
[2022-08-19 06:15] LABS: Eosinophils Absolute Auto 0.1 K/mm3 (0-0.3); Eosinophils Percent Auto 3.1 % (0-4.4); Hematocrit 31.1 % (37.0-47.0); Immature Granulocyte Absolute 0.03 K/mm3 (0.00-0.031); Immature Granulocyte Percent A 0.7 % (0-0.5); Lymphocytes Absolute Auto 0.81 K/mm3 (0.9-3.2); Lymphocytes Percent Auto 19.4 % (18.3-44.2); Mean Corpuscular HGB Conc 32.2 g/dl (32-36); Mean Corpuscular Volume 102.6 fl (80-100); Mean Platelet Volume 9.2 fl (7.4-10.4); Monocytes Absolute Auto 0.5 K/mm3 (0.1-0.6); Neutrophils Absolute Auto 2.7 K/mm3 (1.3-6.7); Neutrophils Percent Auto 64.8 % (45.5-73.1); Platelet Count Result 353 k/mm3 (150-375); Red Blood Count 3.03 M/mm3 (4.2-5.4); Red Cell Distribution Width 15.4 % (11.5-14.5); White Blood Count 4.2 K/mm3 (4.5-10.0)
[2022-08-19 06:28] LABS: Alanine Aminotransferase 18 U/L (6-35); Albumin Level 4.1 g/dL (3.5-5.1); Alkaline Phosphatase 156 U/L (38-126); Anion Gap 5 mmol/L (8-16); Aspartate Amino Transferase 29 U/L (14-36); Bilirubin,Total 0.6 mg/dL (0.2-1.3); Blood Urea Nitrogen 19 mg/dL (7-17); Calcium 9.1 mg/dL (8.4-10.2); Carbon Dioxide 26 mmol/L (22-30); Chloride 105 mmol/L (98-107); Estimated CRCL calculation 36 ml/min; Estimated Glomerular Filt Rate 59; Glucose 95 mg/dL (65-110); Potassium 4.1 mmol/L (3.4-5.0); Sodium 136 mmol/L (137-145)
[2022-08-19 06:29] LABS: Lactic Acid Reflex 0.8 mmol/L (0.7-2.0)
[2022-08-19] MEDS: CYANOCOBALAMIN 250 MCG TABLET PO (09:23)
[2022-08-19] MEDS: gemfibroziL 600 MG TABLET PO (09:24)
[2022-08-19] MEDS: HYDROCORTISONE ACETATE 25 MG SUPPOSITORY RECTAL (09:24)
[2022-08-19] MEDS: FERROUS SULFATE 324 MG TABLET PO (09:24)
[2022-08-19] MEDS: MIRTAZAPINE 30 MG TABLET PO (09:25)
[2022-08-19] MEDS: MULTIVITAMINS /C LUTEIN (CENTRUM SILVER) TABLET *BKC 1 TAB PO (09:25)
[2022-08-19] MEDS: DOCUSATE SODIUM 100 MG CAPSULE PO (09:25)
[2022-08-19] MEDS: PANTOPRAZOLE SODIUM IV 40 MG VIAL IV PUSH (09:25)
[2022-08-19] MEDS: SPIRONOLACTONE 12.5 MG TABLET PO (09:25)
[2022-08-19 09:26] VITALS: PULSE 68
[2022-08-19] MEDS: carvediloL 3.125 MG TABLET PO (09:26)
[2022-08-19 10:49] VITALS: O2SAT 99
--- NOTE | 2022-08-19 11:29 | PM.DS ---
DS: Admitting Diagnosis Discharge Date 08/19/22 Admitting Diagnosis Bright red blood per rectum, hemorrhoids DS: Discharge Diagnosis Discharge Diagnosis (1) Bleeding hemorrhoids: Code(s): K64.9 - Unspecified hemorrhoids Status: Acute Assessment and Plan: H&H every 6 hours. -hold aspirin -the patient is not on any anticoagulation. -the patient stated that she would not allow a colonoscopy even if she did see GI. -it was explained to her and her son that GI was at available over the weekend. -hemorrhoid care discussed with patient (2) Combined congestive systolic and diastolic heart failure: Code(s): I50.40 - Unspecified combined systolic (congestive) and diastolic (congestive) heart failure Status: Acute Assessment and Plan: -continue with Coreg -continue with Aldactone (3) Atrial fibrillation: Code(s): I48.91 - Unspecified atrial fibrillation Status: Acute Assessment and Plan: -the patient in his only on aspirin which is on hold at this time. -continue with coreg rate controllled (4) Dementia: Code(s): F03.90 - Unspecified dementia, unspecified severity, without behavioral disturbance, psychotic disturbance, mood disturbance, and anxiety Status: Acute Assessment and Plan: Patient is forgetful at times. Continue Remeron (5) Chronic anemia: Code(s): D64.9 - Anemia, unspecified Status: Acute Assessment and Plan: Hematology consulted The patient is supposed to get retacrit monthly. She is also on methotrexate it can lead to anemia h and h every 6 hours H&H is 10.2 and 31.8. Continue to monitor MCV 102.2. (6) Rheumatoid arthritis: Code(s): M06.9 - Rheumatoid arthritis, unspecified Status: Acute Assessment and Plan: Continue med methotrexate (7) Hypothyroidism: Code(s): E03.9 - Hypothyroidism, unspecified Status: Acute Assessment and Plan: Check thyroid level -continue with levothyroxine (8) Hyperlipidemia: Code(s): E78.5 - Hyperlipidemia, unspecified Status: Acute Assessment and Plan: Continue Lopid (9) Hypertension: Code(s): I10 - Essential (primary) hypertension Status: Acute Assessment and Plan: Continue with coreg DS: Summary Hospital Course Reason for hospitalization: Bright red blood per rectum, hemorrhoids Hospital Course: 86-year-old female patient with history of hemorrhoids present to the ED with bright red blood per rectum for the past 2-3 days. Patient has had the symptoms in the past was diagnosed with hemorrhoids. Patient does not want to undergo colonoscopy. Rectal exam performed and revealed bleeding hemorrhoids. GI specialist not available at the time of admission. Hemoglobin hematocrit 10.2 and 31.8. Patient admitted to the hospital. Patient's H and H remained stable. Patient sees pharmacometrician as an outpatient where she receives monthly Retacrit injections. Patient has monthly CBCs to monitor H&H. Patient's son stated that he would like his mother to be discharged if she cannot see GI specialist. He stated that she can see her own specialist as an outpatient this coming week. Discussed with them the risks of discharge with rectal bleeding. Such as severe anemia, acute blood loss, sudden loss of consciousness, and possible . Some verbalized his understanding and wish that patient be discharged. Discussed the signs and symptoms of blood loss such as skin flushing, dizziness, weakness, fatigue, loss of consciousness, and tachycardia. Advise topical hemorrhoid cream and follow-up with patient's pharmacometrician. Repeat CBC in the next 5 days. Discussed this case with attending physician. Time Spent with Patient Time attestation: Total time spent providing and/or coordinating discharge services: Exam Narrative: GENERAL: Comfortable, no acut
[2022-08-21 18:02] LABS: Albumin 3.8 g/dL (3.8-4.8); Alpha 1 Globulin 0.4 g/dL (0.2-0.3); Alpha 2 Globulin 0.8 g/dL (0.5-0.9); Beta 1 Globulin 0.4 g/dL (0.4-0.6); Protein, Total 6.7 g/dL (6.1-8.1)
[2022-08-23 14:03] LABS: Haptoglobin 193 mg/dL (43-212)
[2022-08-24 21:46] LABS: Soluble Transferrin Receptor 1.62 mg/L (0.76-1.76)
[2022-08-24 23:13] LABS: Creatinine, Random Urine 20 mg/dL (20-275); Total Protein/Creatinine Ratio 350 mg/g creat (24-184)
== END 2022-08-19 13:56 ==
LOC: ANHED 15:14 → ANH2MED 17:17
PROVIDERS: Nurse Practitioner; Admitting Provider Internal Medicine; Emergency Provider Emergency Medicine; Visit Provider Internal Medicine
DX: K64.9 Unspecified hemorrhoids (principal); I48.91 Unspecified atrial fibrillation; D64.9 Anemia, unspecified; I11.0 Hypertensive heart disease with heart failure; I50.40 Unspecified combined systolic (congestive) and diastolic (congestive) heart failure; F03.90 Unspecified dementia, unspecified severity, without behavioral disturbance, psychotic disturbance, mood disturbance, and anxiety; Z20.822 Contact with and (suspected) exposure to COVID-19; K21.9 Gastro-esophageal reflux disease without esophagitis; E78.5 Hyperlipidemia, unspecified; E03.9 Hypothyroidism, unspecified; M06.9 Rheumatoid arthritis, unspecified; Z95.2 Presence of prosthetic heart valve; Z66 Do not resuscitate; Z79.82 Long term (current) use of aspirin; Z79.899 Other long term (current) drug therapy; Z81.8 Family history of other mental and behavioral disorders
CPT/HCPCS: 36415; 80053; 82247; 82248; 82570; 82607; 82728; 82746; 83010; 83540; 83550; 83605; 83615; 83735; 84155; 84156; 84165; 84166; 84238; 84443; 84466; 85014; 85018; 85025; 85046; 85610; 86850; 86880; 86900; 86901; 87636; 96361; 96374; 96376; 99285; A9270; C9113; G0378; J7030

== ENCOUNTER 2023-04-22 14:58 | Emergency (ER) | payer MEDICARE, SELFPAY ==
--- NOTE | ~2023-04-22 | CT_ITS ---
EXAMINATION: CT abdomen pelvis w con DATE: 04/22/2023 16:09 INDICATION: Abdominal pain TECHNIQUE: Computed tomography (CT) of the abdomen and pelvis was performed with 100 mL Omnipaque-350 intravenous contrast. Automated exposure control and iterative reconstruction technique were employe d. The dose-length product was 351.62 mGy-cm. COMPARISON: 04/21/2022 FINDINGS: Mild dependent atelectasis in the bilateral lower lobes and discoid atelectasis at the lingula. Heart size is normal. Median sternotomy with mitral and tricuspid valve repairs. No pericardial effusion. Cholecystectomy clips the gallbladder fossa. Mild focal hepatic steatosis at the ligamentum teres. Un changed 1 cm low-attenuation splenic cyst versus hemangioma. A few scattered splenic calcific lesions consistent with old granulomatous disease. Punctate dystrophic calcifications in the body and tail t he pancreas consistent with sequela of chronic pancreatitis. 2.8 cm exophytic left renal cyst and a c ouple subcentimeter cysts at the right kidney. Small region of cortical scarring at the mid left kidn ey likely sequela of chronic infection or infarction. Scattered colonic diverticula most prominent al richi the sigmoid colon where there are several containing high attenuation material. No adjacent from trace stranding to suggest diverticulitis. Short appendix versus appendiceal stump without surroundin g inflammatory stranding to suggest appendicitis. No bowel obstruction. Pessary within the vaginal va ult. Bladder, atrophic anteverted uterus and bilateral adnexa are unremarkable. No free intraperitone al gas or fluid. No pathologically enlarged abdominal or pelvic lymphadenopathy. Mild thoracic and niki mbar spondylosis with chronic mild compression fracture along the superior endplate of L3. Mild to mo derate osteoarthritis at the bilateral hip and sacroiliac joints. IMPRESSION: 1. No acute intra-abdominal/pelvic process. Reviewed, dictated and finalized at location A.
[2023-04-22 14:59] VITALS: BP 140/79; PULSE 91; RESP 16; TEMP 36.5; O2SAT 98
[2023-04-22 15:23] VITALS: BP 115/64; PULSE 78; RESP 18; O2SAT 100
--- NOTE | 2023-04-22 15:23 | ED.ABDPAIN ---
HPI - Abdominal Pain General Chief Complaint: Abdominal Pain Stated Complaint: abdominal pain Time Seen by Provider: 04/22/23 15:22 History of Present Illness HPI narrative: Patient is an 87-year-old female history of dementia, AFib, recurrent UTIs here with lower abdominal pain and concern for vaginal prolapse. Patient endorses some lower abdominal pain however given her dementia is a pretty poor historian. Majority of history is obtained from daughter. Daughter states that she was called from patient's facility today as she was complaining of some lower abdominal pain. They were concerned that maybe she had a large hemorrhoid given she had a bulge of tissue hanging from her pelvic floor. patient's daughter does note that she has a pessary in place and follows with [facility], has an appointment tomorrow. Daughter notes the patient has been suffering with recurrent UTIs which seemed to happen monthly. She last was hospitalized at the end of last month for UTI. Patient is on maintenance Keflex which does not seem to be avoiding her UTIs. Typically when patient has UTI she seems to be having behavioral changes, she does seem to be a little bit more withdrawn than her baseline however otherwise she seems to be her normal self. No fever at facility. Related Data Home Medications Medication Instructions Recorded Confirmed aspirin 81 mg tablet,delayed 81 mg PO DAILY 05/01/21 03/19/23 release (Adrián Low Dose Aspirin) carvedilol 3.125 mg tablet 3.125 mg PO BID 05/01/21 03/19/23 cyanocobalamin (vitamin B-12) 100 250 mcg PO DAILY 05/01/21 03/19/23 mcg tablet gemfibrozil 600 mg tablet 600 mg PO BID 05/01/21 03/19/23 mirtazapine 30 mg tablet 45 mg PO DAILY 05/01/21 03/19/23 multivitamin with min 1 tablet PO DAILY 05/01/21 03/19/23 no.36-iron,carbonyl-FA 16 mg iron-0.38 mg tablet (Geritol Complete) spironolactone 25 mg tablet 12.5 mg PO DAILY 05/01/21 03/19/23 docusate sodium 100 mg capsule 1 mg PO DAILY 11/11/21 03/19/23 (Dulcolax Stool Softener (docusate)) bumetanide 1 mg tablet 1 mg PO DAILY 04/09/23 04/12/23 ferrous sulfate 105 mg-C 500 1 tablet PO TID 04/09/23 04/12/23 mg-folic acid 800 mcg tablet,extend.rel potassium chloride 20 mEq 40 meq PO BID 04/09/23 04/12/23 tablet,extended release(part/cryst) Allergies Allergy/AdvReac Type Severity Reaction Status Date / Time No Known Allergies Allergy Verified 04/09/23 15:33 Review of Systems Review of Systems: ROS unobtainable: Yes other (dementia) [facility] Past Medical History Medical History (Updated 04/22/23 @ 17:29 by Vanna Hancock MD) Aspiration into airway Atrial fibrillation Not on anticoagulation due to history of GI bleed and falls. Chronic anemia Patient on iron supplementation. She also receives Epogen injection per her primary care provider. Combined congestive systolic and diastolic heart failure Echo in April 2021 showed mild concentric LVH, mildly diminished LV function with a calculated EF of 49%, grade 2 diastolic dysfunction, and probable right ventricular dysfunction. PASP was 29 mmHg. Dementia Establishing care with new doctor, encounter for Gastroesophageal reflux disease History of recurrent UTIs Hospital discharge follow-up Hyperlipidemia Hypertension Hypothyroidism Rheumatoid arthritis Schatzki's ring Surgical History Surgical History ) History of section History of cholecystectomy History of mitral valve replacement Family History Family History ) Sibling Dementia Diabetes mellitus Social History Social History ) Social History: Surrogate decision-maker: John Cabello, son. She had three children and one of the twins . She retired from a [employer] yard. She is She lives at [place] [facility]. CODE STATUS:
[2023-04-22 15:42] LABS: Appearance Urine Clear (Clear); Bilirubin Urine Negative (Negative); Blood Urine Negative (Negative); Color Urine Yellow (Yellow); Glucose Urine UA Negative (Negative); Ketones Urine Negative (Negative); Leukocyte Esterase Ur Negative LEU/UL (Negative); Nitrate Urine Negative (Negative); Protein Urine Negative (Negative); Specific Grav Ur 1.015 (1.001-1.035); Urobilinogen Urine 0.2 mg/dL (<2.0); pH Urine 5.5 (5.0-9.0)
[2023-04-22 15:48] LABS: Add Urine Microscopic? NO
[2023-04-22 15:49] LABS: Basophils Percent Auto 0.4 % (0.2-1.2); Eosinophils Absolute Auto 0.2 K/mm3 (0-0.3); Eosinophils Percent Auto 4.1 % (0-4.4); Hematocrit 30.5 % (37.0-47.0); Immature Granulocyte Absolute 0.02 K/mm3 (0.00-0.031); Immature Granulocyte Percent A 0.4 % (0-0.5); Lymphocytes Absolute Auto 1.43 K/mm3 (0.9-3.2); Lymphocytes Percent Auto 29.2 % (18.3-44.2); Mean Corpuscular HGB Conc 32.8 g/dl (32-36); Mean Corpuscular Hemoglobin 33.2 pg (26-34); Mean Corpuscular Volume 101.3 fl (80-100); Mean Platelet Volume 9.8 fl (7.4-10.4); Monocytes Absolute Auto 0.5 K/mm3 (0.1-0.6); Neutrophils Absolute Auto 2.7 K/mm3 (1.3-6.7); Neutrophils Percent Auto 55.9 % (45.5-73.1); Platelet Count Result 306 k/mm3 (150-375); Red Blood Count 3.01 M/mm3 (4.2-5.4); Red Cell Distribution Width 14.5 % (11.5-14.5); White Blood Count 4.9 K/mm3 (4.5-10.0)
[2023-04-22 15:53] LABS: Alanine Aminotransferase 18 U/L (6-35); Albumin Level 4.3 g/dL (3.5-5.1); Alkaline Phosphatase 166 U/L (38-126); Anion Gap 7 mmol/L (8-16); Aspartate Amino Transferase 31 U/L (14-36); Bilirubin,Total 0.5 mg/dL (0.2-1.3); Blood Urea Nitrogen 21 mg/dL (7-17); Calcium 9.2 mg/dL (8.4-10.2); Carbon Dioxide 29 mmol/L (22-30); Chloride 103 mmol/L (98-107); Estimated CRCL calculation 29 ml/min; Estimated Glomerular Filt Rate 47; Glucose 118 mg/dL (65-110); Lipase 239 U/L (23-300); Potassium 3.7 mmol/L (3.4-5.0); Sodium 139 mmol/L (137-145)
--- NOTE | 2023-04-22 16:11 | PC.NURSE ---
Pt to CT scan via stretcher at this time.
[2023-04-22 17:53] VITALS: BP 120/64; PULSE 74; RESP 14; O2SAT 100
== END 2023-04-22 17:55 ==
PROVIDERS: Emergency Provider Student in an Organized Health Care Education/Training Program; PCP Family Medicine
DX: R10.2 Pelvic and perineal pain (principal); I48.91 Unspecified atrial fibrillation; D64.9 Anemia, unspecified; I11.0 Hypertensive heart disease with heart failure; I50.82 Biventricular heart failure; K21.9 Gastro-esophageal reflux disease without esophagitis; F03.90 Unspecified dementia, unspecified severity, without behavioral disturbance, psychotic disturbance, mood disturbance, and anxiety; E03.9 Hypothyroidism, unspecified
CPT/HCPCS: 36415; 74177; 80053; 81003; 83690; 85025; 99284; Q9967

== ENCOUNTER 2023-09-08 10:44 | Emergency (ER) | payer MEDICARE, SELFPAY ==
[2023-09-08] VITALS (17 sets, daily range): BP systolic 123–149; BP diastolic 69–72; PULSE 79–91; RESP 13–22; TEMP 36.4; O2SAT 98–100
--- NOTE | ~2023-09-08 | CT_ITS ---
EXAMINATION: CT abdomen pelvis w con DATE: 09/08/2023 12:49 INDICATION: Lower abdomen pain. TECHNIQUE: Computed tomography (CT) of the abdomen and pelvis was performed with 100 cc Omnipaque 350 intravenous contrast. The dose-length product was 456.53 mGy-cm. Automated exposure control and iter ative reconstruction technique were employed. COMPARISON: None. FINDINGS: There is lingular atelectasis. No significant pleural or pericardial effusion. Heart size n ormal. There are left renal cysts. There is nonobstructing right nephrolithiasis. Fatty infiltration of the liver. The spleen contains calcified granulomas. There is a small splenic cyst. The pancreas, adrenal glands are unremarkable. Nonobstructive bowel gas pattern. There is a cerclage device in the pelvis. Colonic diverticulosis without evidence for diverticulitis. No free air or free fluid. No sig nificant vascular abnormality. There is evidence of pelvic relaxation. Mild lumbar spondylosis. Mild chronic superior endplate compression deformity of L3. IMPRESSION: 1. No acute abdominal abnormality. 2: Pelvic relaxation with cerclage device in the cervix. Reviewed, dictated and finalized at location A. [employer] ENGINEER
[2023-09-08 12:08] LABS: Basophils Percent Auto 0.4 % (0.2-1.2); Eosinophils Absolute Auto 0.1 K/mm3 (0-0.3); Eosinophils Percent Auto 1.8 % (0-4.4); Hematocrit 36.9 % (37.0-47.0); Hemoglobin 11.7 g/dL (12.0-15.0); Immature Granulocyte Absolute 0.02 K/mm3 (0.00-0.031); Immature Granulocyte Percent A 0.3 % (0-0.5); Lymphocytes Absolute Auto 1.62 K/mm3 (0.9-3.2); Lymphocytes Percent Auto 22.7 % (18.3-44.2); Mean Corpuscular HGB Conc 31.7 g/dl (32-36); Mean Corpuscular Hemoglobin 31.9 pg (26-34); Mean Corpuscular Volume 100.5 fl (80-100); Mean Platelet Volume 9.8 fl (7.4-10.4); Monocytes Absolute Auto 0.9 K/mm3 (0.1-0.6); Monocytes Percent Auto 12.9 % (2.6-8.5); Neutrophils Absolute Auto 4.4 K/mm3 (1.3-6.7); Neutrophils Percent Auto 61.9 % (45.5-73.1); Platelet Count Result 357 k/mm3 (150-375); Red Blood Count 3.67 M/mm3 (4.2-5.4); Red Cell Distribution Width 13.5 % (11.5-14.5); White Blood Count 7.1 K/mm3 (4.5-10.0)
--- NOTE | 2023-09-08 12:11 | ED.FEMALEGU ---
HPI - Female Genitourinary General Chief complaint: Urogenital-Female Stated complaint: Pain, i think her bladder fell Time Seen by Provider: 09/08/23 11:05 History of Present Illness HPI Narrative: 87-year-old female with history of bladder issues present to the emergency department for evaluation of lower abdominal pain. Patient previously did require a pessary device but patient felt that it was too uncomfortable so she wore a smaller pessary device. Over the course of the last few weeks patient's son states that the patient has been complaining lower abdominal pain and having increased urinary frequency. Patient does have a history frequent urinary tract infections and does take 250 mg of Keflex daily. Related Data Home Medications Medication Instructions Recorded Confirmed aspirin 81 mg tablet,delayed 81 mg PO DAILY 05/01/21 03/19/23 release (Adrián Low Dose Aspirin) carvedilol 3.125 mg tablet 3.125 mg PO BID 05/01/21 03/19/23 multivitamin with min 1 tablet PO DAILY 05/01/21 03/19/23 no.36-iron,carbonyl-FA 16 mg iron-0.38 mg tablet (Geritol Complete) spironolactone 25 mg tablet 12.5 mg PO DAILY 05/01/21 03/19/23 docusate sodium 100 mg capsule 1 mg PO DAILY 11/11/21 03/19/23 (Dulcolax Stool Softener (docusate)) bumetanide 1 mg tablet 1 mg PO DAILY 04/09/23 04/12/23 potassium chloride 20 mEq 40 meq PO BID 04/09/23 04/12/23 tablet,extended release(part/cryst) epoetin susan-epbx 2,000 unit/mL 2,000 unit subcut 3XW 08/20/23 injection solution (Retacrit) Allergies Allergy/AdvReac Type Severity Reaction Status Date / Time No Known Allergies Allergy Verified 08/20/23 13:10 Review of Systems Review of Systems: All systems reviewed & are unremarkable except as noted in HPI and below PMFSH Past Medical History Medical History (Reviewed 08/20/23 @ 13:13 by Ricardo Barrett [facility], [facility]) Aspiration into airway Atrial fibrillation Not on anticoagulation due to history of GI bleed and falls. Chronic anemia Patient on iron supplementation. She also receives Epogen injection per her primary care provider. CKD (chronic kidney disease) Combined congestive systolic and diastolic heart failure Echo in April 2021 showed mild concentric LVH, mildly diminished LV function with a calculated EF of 49%, grade 2 diastolic dysfunction, and probable right ventricular dysfunction. PASP was 29 mmHg. Dementia Establishing care with new doctor, encounter for Gastroesophageal reflux disease History of recurrent UTIs Hospital discharge follow-up Hyperlipidemia Hypertension Hypothyroidism Rheumatoid arthritis Schatzki's ring Surgical History Surgical History History of section History of cholecystectomy History of mitral valve replacement Family History Family History Sibling Dementia Diabetes mellitus Social History Social History (Updated 08/20/23 @ 13:13 by Ricardo Barrett Anselmo) Social History: Surrogate decision-maker: John Cabello, son. She had three children and one of the twins . She retired from a [employer] yard. She is She lives at [facility]. CODE STATUS: DNR Smoking status: Never smoker Alcohol intake: never Substance use: never Substance use type: does not use Do You Feel Safe in your Home?: Yes Lack of Transportation: No Lack of Food: Never True Current Housing: I Have Housing Concerned About Future Housing: No Difficulty Paying Gas/Electric Bills: No Difficulty Paying for Meds: No Currently Unemployed: No Education: High School Diploma/GED Difficulty w/ Childcare or Family Care: No Living arrangements: assisted living Additional living arrangements comments: Resident at [facility] in [place]. Ambulates with a walker. Additional occupation/education comments: Retired from working in a [employer] yard.
[2023-09-08 12:23] LABS: Alanine Aminotransferase 18 U/L (6-35); Albumin Level 4.4 g/dL (3.5-5.1); Alkaline Phosphatase 162 U/L (38-126); Anion Gap 8 mmol/L (8-16); Aspartate Amino Transferase 39 U/L (14-36); Bilirubin,Total 0.6 mg/dL (0.2-1.3); Blood Urea Nitrogen 31 mg/dL (7-17); Calcium 9.9 mg/dL (8.4-10.2); Carbon Dioxide 28 mmol/L (22-30); Chloride 101 mmol/L (98-107); Estimated Glomerular Filt Rate 47; Glucose 96 mg/dL (65-110); Potassium 3.8 mmol/L (3.4-5.0); Sodium 137 mmol/L (137-145)
[2023-09-08 14:40] LABS: Appearance Urine Clear (Clear); Bacteria Urine 4+ /hpf; Bilirubin Urine Negative (Negative); Blood Urine Negative (Negative); Color Urine Yellow (Yellow); Glucose Urine UA Negative (Negative); Ketones Urine Negative (Negative); Leukocyte Esterase Ur 2+ LEU/UL (Negative); Nitrate Urine Negative (Negative); Non Pathogenic Casts 0-2; Protein Urine Negative (Negative); RBC Urine 0-2 /hpf (0-2); Specific Grav Ur 1.025 (1.001-1.035); Squamous Epithelial Cell Urine None seen /hpf (Few); Urobilinogen Urine 0.2 mg/dL (<2.0); WBC Urine 51-100 /hpf
[2023-09-08 14:43] LABS: Add Urine Microscopic? YES
== END 2023-09-08 17:23 ==
PROVIDERS: Emergency Provider Emergency Medicine; PCP Family Medicine
DX: R33.9 Retention of urine, unspecified (principal); R82.998 Other abnormal findings in urine; F03.90 Unspecified dementia, unspecified severity, without behavioral disturbance, psychotic disturbance, mood disturbance, and anxiety; I48.91 Unspecified atrial fibrillation; I13.0 Hypertensive heart and chronic kidney disease with heart failure and stage 1 through stage 4 chronic kidney disease, or unspecified chronic kidney disease; N18.9 Chronic kidney disease, unspecified; I50.40 Unspecified combined systolic (congestive) and diastolic (congestive) heart failure; D64.9 Anemia, unspecified; E78.5 Hyperlipidemia, unspecified; E03.9 Hypothyroidism, unspecified; K21.9 Gastro-esophageal reflux disease without esophagitis; M06.9 Rheumatoid arthritis, unspecified; Z66 Do not resuscitate; Z95.2 Presence of prosthetic heart valve; Z90.49 Acquired absence of other specified parts of digestive tract; Z79.82 Long term (current) use of aspirin
CPT/HCPCS: 36415; 51702; 74177; 80053; 81001; 85025; 87077; 87086; 87186; 96365; 99284; J0696; Q9967

== ENCOUNTER 2023-10-04 11:38 | Emergency (ER) | payer MEDICARE, SELFPAY ==
[2023-10-04] VITALS (10 sets, daily range): BP systolic 104–142; BP diastolic 59–89; PULSE 66–88; RESP 14–20; TEMP 36.3–36.8; O2SAT 98–100
--- NOTE | ~2023-10-04 | CT_ITS ---
EXAMINATION: CT abdomen pelvis w con INDICATION: Urinary retention TECHNIQUE: Computed tomographic images of the abdomen and pelvis were obtained after the administrati on of 100 cc of Omnipaque 350 intravenous contrast. The dose-length product (DLP) was 585.81 mGy-cm. Automated exposure control and iterative reconstruction technique were employed. COMPARISON: 09/08/2023 FINDINGS: Minimal dependent atelectasis is present in the lung bases. The heart size is normal. Punct ate calcifications in the spleen likely represent healed granulomatous disease. There is a stable 10 mm hypoattenuating lesion of the spleen, likely lymphangioma or hemangioma. Changes of cholecystectom y are noted. The liver, pancreas, and adrenal glands are normal. Cysts of the kidneys measure up to 2 .9 cm on the left. No pathologically enlarged abdominal or pelvic lymph nodes are identified. No free intraperitoneal gas or evidence of bowel obstruction. A pessary is noted. Colonic diverticulosis is present without evidence of diverticulitis. Gas in the urinary bladder may reflect recent catheteriza tion. IMPRESSION: 1. No CT correlate for the patient's symptoms. Reviewed, dictated and finalized at location F.
--- NOTE | 2023-10-04 15:13 | ED.FEMALEGU ---
HPI - Female Genitourinary General Chief complaint: Urogenital-Female Stated complaint: prolapsed bladder- bleeding Time Seen by Provider: 10/04/23 14:08 History of Present Illness HPI Narrative: 87-year-old female presenting with prolapsed bladder. Patient's daughters at bedside and helps with history. States that patient has a history of prolapsing bladder and she uses a doughnut pessary. Today her home health was trying to get a urinalysis and the patient's bladder prolapsed and she had bleeding from the area. They are unsure if something scraped her bladder. She was brought to the ER and upon lying her down, her bladder was no longer prolapse. No further bleeding. Patient denies any pain or complaints. Patient's daughter states that she is scheduled to have surgery for her bladder prolapse in a couple of months. Related Data Home Medications Medication Instructions Recorded Confirmed aspirin 81 mg tablet,delayed 81 mg PO DAILY 05/01/21 03/19/23 release (Adrián Low Dose Aspirin) carvedilol 3.125 mg tablet 3.125 mg PO BID 05/01/21 03/19/23 multivitamin with min 1 tablet PO DAILY 05/01/21 03/19/23 no.36-iron,carbonyl-FA 16 mg iron-0.38 mg tablet (Geritol Complete) spironolactone 25 mg tablet 12.5 mg PO DAILY 05/01/21 03/19/23 bumetanide 1 mg tablet 1 mg PO DAILY 04/09/23 04/12/23 epoetin susan-epbx 2,000 unit/mL 2,000 unit subcut 3XW 08/20/23 injection solution (Retacrit) Lactobacillus acidophilus 10 10,000 mmu cells PO DAILY 10/02/23 billion cell capsule (Probiotic) docusate sodium 100 mg capsule 1 mg PO BID 10/02/23 (Dulcolax Stool Softener (docusate)) Allergies Allergy/AdvReac Type Severity Reaction Status Date / Time No Known Allergies Allergy Verified 10/04/23 11:39 Review of Systems Review of Systems: All systems reviewed & are unremarkable except as noted in HPI and below PMFSH Past Medical History Medical History Aspiration into airway Atrial fibrillation Not on anticoagulation due to history of GI bleed and falls. Bilateral leg weakness Chronic anemia Patient on iron supplementation. She also receives Epogen injection per her primary care provider. CKD (chronic kidney disease) Combined congestive systolic and diastolic heart failure Echo in April 2021 showed mild concentric LVH, mildly diminished LV function with a calculated EF of 49%, grade 2 diastolic dysfunction, and probable right ventricular dysfunction. PASP was 29 mmHg. Debility Dementia Establishing care with new doctor, encounter for Gastroesophageal reflux disease History of recurrent UTIs Hospital discharge follow-up Hyperlipidemia Hypertension Hypothyroidism Osteoarthritis Rheumatoid arthritis Schatzki's ring Surgical History Surgical History History of section History of cholecystectomy History of mitral valve replacement Family History Family History Sibling Dementia Diabetes mellitus Social History Social History Social History: Surrogate decision-maker: John Cabello, son. She had three children and one of the twins . She retired from a [employer]. She is She lives at [facility]. CODE STATUS: DNR Smoking status: Never smoker Alcohol intake: never Substance use: never Substance use type: does not use Do You Feel Safe in your Home?: Yes Lack of Transportation: No Lack of Food: Never True Current Housing: I Have Housing Concerned About Future Housing: No Difficulty Paying Gas/Electric Bills: No Difficulty Paying for Meds: No Currently Unemployed: No Education: High School Diploma/GED Difficulty w/ Childcare or Family Care: No Living arrangements: assisted living Additional living arrangem
[2023-10-04 15:19] LABS: Appearance Urine Clear (Clear); Bilirubin Urine Negative (Negative); Blood Urine Negative (Negative); Color Urine Yellow (Yellow); Glucose Urine UA Negative (Negative); Ketones Urine Negative (Negative); Leukocyte Esterase Ur Negative LEU/UL (Negative); Nitrate Urine Negative (Negative); Protein Urine Negative (Negative); Specific Grav Ur 1.008 (1.001-1.035); Urobilinogen Urine 0.2 mg/dL (<2.0); pH Urine 5.5 (5.0-9.0)
[2023-10-04 15:26] LABS: Add Urine Microscopic? NO
[2023-10-04 16:05] LABS: Basophils Percent Auto 0.5 % (0.2-1.2); Eosinophils Absolute Auto 0.2 K/mm3 (0-0.3); Eosinophils Percent Auto 2.4 % (0-4.4); Hematocrit 32.6 % (37.0-47.0); Hemoglobin 10.8 g/dL (12.0-15.0); Immature Granulocyte Absolute 0.04 K/mm3 (0.00-0.031); Immature Granulocyte Percent A 0.6 % (0-0.5); Lymphocytes Percent Auto 28.9 % (18.3-44.2); Mean Corpuscular HGB Conc 33.1 g/dl (32-36); Mean Corpuscular Volume 96.4 fl (80-100); Mean Platelet Volume 9.7 fl (7.4-10.4); Monocytes Absolute Auto 0.8 K/mm3 (0.1-0.6); Monocytes Percent Auto 12.6 % (2.6-8.5); Neutrophils Absolute Auto 3.6 K/mm3 (1.3-6.7); Platelet Count Result 325 k/mm3 (150-375); Red Blood Count 3.38 M/mm3 (4.2-5.4); Red Cell Distribution Width 13.2 % (11.5-14.5); White Blood Count 6.6 K/mm3 (4.5-10.0)
[2023-10-04 16:17] LABS: Anion Gap 7 mmol/L (8-16); Blood Urea Nitrogen 25 mg/dL (7-17); Calcium 9.7 mg/dL (8.4-10.2); Carbon Dioxide 26 mmol/L (22-30); Chloride 105 mmol/L (98-107); Estimated CRCL calculation 29 ml/min; Estimated Glomerular Filt Rate 47; Glucose 90 mg/dL (65-110); Potassium 3.4 mmol/L (3.4-5.0); Sodium 138 mmol/L (137-145)
== END 2023-10-04 18:26 | disposition home or self-care (01) ==
PROVIDERS: Emergency Provider Emergency Medicine; PCP Family Medicine
DX: N81.10 Cystocele, unspecified (principal); F03.90 Unspecified dementia, unspecified severity, without behavioral disturbance, psychotic disturbance, mood disturbance, and anxiety; I48.91 Unspecified atrial fibrillation; I13.0 Hypertensive heart and chronic kidney disease with heart failure and stage 1 through stage 4 chronic kidney disease, or unspecified chronic kidney disease; N18.9 Chronic kidney disease, unspecified; I50.40 Unspecified combined systolic (congestive) and diastolic (congestive) heart failure; D64.9 Anemia, unspecified; E78.5 Hyperlipidemia, unspecified; E03.9 Hypothyroidism, unspecified; K21.9 Gastro-esophageal reflux disease without esophagitis; M06.9 Rheumatoid arthritis, unspecified; M19.90 Unspecified osteoarthritis, unspecified site; Z66 Do not resuscitate; Z95.2 Presence of prosthetic heart valve; Z87.440 Personal history of urinary (tract) infections; Z90.49 Acquired absence of other specified parts of digestive tract; Z79.82 Long term (current) use of aspirin
CPT/HCPCS: 36415; 51702; 74177; 80048; 85025; 99284; Q9967

== ENCOUNTER 2023-10-11 11:58 | Outpatient (CLI) | payer MEDICARE, SELFPAY ==
--- NOTE | ~2023-10-11 | US_ITS ---
EXAMINATION: US pelvic complete DATE: 10/11/2023 13:36 INDICATION: Endometrial thickness Comparison:High-resolution Limited ultrasound of the pelvis TECHNIQUE: Multiple transabdominal and endovaginal sonographic images of the pelvis performed. FINDINGS: The uterus measures 5.5 x 3.2 x 5.5 cm. The endometrial complex measures 3.6 mm. The ovaries are not visualized. There is no free fluid in the pelvis. There are no abnormal masses s een on either side. Incidental note is made of a bladder diverticulum. IMPRESSION: 1. Small bladder diverticulum. Otherwise, unremarkable pelvic ultrasound. Reviewed, dictated and finalized at location B.
== END 2023-10-11 11:59 | disposition home or self-care (01) ==
PROVIDERS: PCP Family Medicine; Visit Provider Nurse Practitioner Family
DX: N32.3 Diverticulum of bladder (principal); N81.3 Complete uterovaginal prolapse
CPT/HCPCS: 76856